=== PATIENT | female | born 1935 | race Caucasian/White ===

== ENCOUNTER 2022-11-10 18:14 | Outpatient (REF) | payer MEDICARE, SELFPAY ==
[2022-11-10 18:47] LABS: Appearance Urine Cloudy (Clear); Bilirubin Urine Negative (Negative); Blood Urine 1+ (Negative); Color Urine Yellow (Yellow); Glucose Urine Negative (Negative); Ketones Urine Negative (Negative); Leukocyte Esterase Urine 3+ (Negative); Nitrite Urine Positive (Negative); Protein Urine Negative (Negative); Urobilinogen Urine 0.2 (0.2-1.0); pH Urine 5.5 (5.0-8.5)
[2022-11-10 19:15] LABS: Bacteria Urine Many; RBC Urine 25-50 (0-2); Squamous Epithelial Cell Urine Many (None-Few); WBC Urine >100 (0-5)
== END 2022-11-10 18:15 | disposition home or self-care (01) ==
LOC: NPINS 18:14
PROVIDERS: Visit Provider Nurse Practitioner Gerontology
DX: R35.0 Frequency of micturition (principal); R41.0 Disorientation, unspecified
CPT/HCPCS: 81001; 87086; 87186

== ENCOUNTER 2022-11-14 13:04 | Emergency (ER) | payer MEDICARE, SELFPAY ==
[2022-11-14 13:17] VITALS: BP 157/83; PULSE 89; RESP 18; TEMP 37.2; O2SAT 96; BMI 29.3
--- NOTE | 2022-11-14 13:38 | CRLHL7_ITS ---
For Patients: As a result of the Century Cures Act, medical imaging exams and procedure reports are released immediately into your electronic medical record. You may view this report before your referring provider. If you have questions, please contact your health care provider. INDICATION: Headache. TECHNIQUE: Head CT without contrast. COMPARISON: None. FINDINGS: CSF spaces: Within normal limits for age. Brain parenchyma and extra-axial spaces: There are nonspecific low attenuation white matter changes consistent with chronic microvascular disease. No sign of mass, hemorrhage, or midline shift. Skull base and calvarium: The visualized paranasal sinuses and mastoid air cells demonstrate no acute or significant findings. The visualized orbits are grossly unremarkable. No skull fractures. IMPRESSION: No acute or significant findings. Please note that all CT scans at this facility use dose modulation, iterative reconstruction, and/or weight-based dosing when appropriate to reduce radiation dose to as low as reasonably achievable. Dictated by Jann Huang MD @ 11/14/2022 2:26:42 PM (Electronically Signed)
--- NOTE | 2022-11-14 13:42 | ED_ITS ---
HPI - General Adult General Time Seen by Provider: 13:42 Date Seen: 11/14/22 Chief complaint: Headache/Migraine Stated complaint: Headache Body Aches Stroke Concerns Time Seen by Provider: 11/14/22 13:18 Source: patient Mode of arrival: ambulatory Limitations: no limitations History of Present Illness HPI narrative: Patient is a very pleasant 87 year white female who lives at a assisted living in [facility]. She apparently had a mild headache this morning left side of her head. She felt just somewhat dizzy for a while but wanted to stay in bed get some Tylenol. Staff felt that she should be evaluated for stroke. I discussed with her and her son who is very involved in her care whether they want aggressive intervention or not and after discussion it was determined she did not really want a breathing machine or ventilation or to be ?kept alive?. The patient denies any focal weakness denies any recent fever chills cough systemic signs of illness she feels better now than she did earlier this morning M she is requesting some Tylenol that helped her in the past. She reports she has had similar headaches in the past that have just simply ?gone away?. Patient denies any neck stiffness any visual problem photophobia or neurologic complaint as mention. No dysuria frequency. No cough, no chest pain Related Data Home Medications Medication Instructions Recorded Confirmed acetaminophen 500 mg tablet mg 11/14/22 (Acetaminophen Extra Strength) lisinopril 5 mg tablet mg 11/14/22 melatonin 3 mg capsule 3 mg PO HS PRN 11/14/22 11/14/22 nitrofurantoin 11/14/22 monohydrate/macrocrystals 100 mg capsule (Macrobid) Allergies Allergy/AdvReac Type Severity Reaction Status Date / Time No Known Drug Allergies Allergy Verified 11/14/22 13:26 Review of Systems Status of ROS: Reports: 6 or more systems reviewed and unremarkable except as noted in History and below [facility] Social History Smoking Status: Smoker, status unknown Exam Narrative: Exam Narrative: Objective: Vital signs unremarkable other than slightly elevated blood pressure HEENT shows no facial asymmetry pupils react extraocular moves intact, neck supple, chest is clear, heart rhythm regular with 2/6 systolic ejection murmur Abdomen benign soft Extremities good perfusion, good strength in the upper lower extremities, normal sensation in upper lower extremities. Patient is able to ambulate independently and also with her walker Const: Vital Signs, click to edit/add: Vital Signs - 24 hr 11/14/22 13:17 Temperature 99.0 F Pulse Rate [Right Pulse Oximeter] 89 Respiratory Rate 18 Blood Pressure [Ri ght Upper Arm] 157/83 H Pulse Oximetry 96 Oxygen Delivery Me thod Room Air Course Vital Signs Vital signs: Initial Vital Signs Temperature 99.0 F 11/14/22 13:17 Temperature Source Temporal Artery Scan 11/14/22 13:17 Pulse Rate 89 11/14/22 13:17 Respiratory Rate 18 11/14/22 13:17 Blood Pressure 157/83 H 11/14/22 13:17 Blood Pressure Mean 107 11/14/22 13:17 Blood Pressure Position Sitting 11/14/22 13:17 Pulse Oximetry 96 11/14/22 13:17 Oxygen Delivery Method 11/14/22 13:17 Vital Signs Temperature 99.0 F 11/14/22 13:17 Pulse Rate 89 11/14/22 13:17 Respiratory Rate 18 11/14/22 13:17 Blood Pressure 157/83 H 11/14/22 13:17 Pulse Oximetry 96 11/14/22 13:17 Oxygen Delivery Method 11/14/22 13:17 Temperature 99.0 F 11/14/22 13:17 Pulse Rate 89 11/14/22 13:17 Respiratory Rate 18 11/14/22 13:17 Blood Pressure 157/83 H 11/14/22 13:17 Pulse Oximetry 96 11/14/22 13:17 Oxygen Delivery Method 11/14/22 13:17 Medical Decision Making MDM Narrative Medical decision making narrative: Discuss with Luz Marina in her son that they really are and charge of her health care and they can elect to proceed with testing if they wish to. After discussion of treatment off her options including just simply using some Tylenol returning to the residential, versus doing a full workup or transfer and imaging such as MRI scanning, with mutual decision making we decided to do a head CT scan, laboratory studies and try some Tylenol. I suggest to them that they consider that her treatment status in terms of a code status and they will discuss this with her primary provider. At this point she is very clear she does not want life-sustaining intervention. This approach of a CT and labs CE and Tylenol seems like a very reasonable approach given her presentation. Her symptoms have improved Addendum: The patient got Tylenol and her headache is resolved, her head CT looks negative, her laboratory studies are pending but due to the ER acuity and volume the patient will be waiting for many hours before she gets her labs back. Will out heard her son to go home per their request and will call him back there is any significant changes in her lab studies. Light activity Tylenol as needed return as needed. They were comfortable this plan. Lab Data Labs: Lab Results 11/14/22 11/14/22 11/14/22 Range/Units 13:39 14:25 14:25 WBC 11.82 H (4.50-11.00) K/uL RBC 4.59 (4.00-5.20) m/uL Hgb 14.5 (12.0-16.0) gm/dL Hct 42.8 (33.0-51.0) % MCV 93 (80-100) fL MCH 32 (26-34) pg MCHC 34 (32-36) gm/dL RDW Coeff of Lalo 12.4 (11.5-15.5) % Plt Count 195 (140-440) K/uL Neut % (Auto) 88.5 H (42.0-72.0) % Lymph % (Auto) 3.7 L (20-44) % [place] % (Auto) 6.3 (0.0-11.0) % Eos % (Auto) 0.4 (0.0-7.0) % Baso % (Auto) 0.2 (0.0-3.0) % Neut # (Auto) 10.50 H (1.7-7.0) K/uL Lymph # (Auto) 0.40 L (0.90-2.90) K/uL [place] # (Auto) 0.70 (0.00-0.90) K/UL Eos # (Auto) 0.00 (0.00-0.50) K/uL Baso # (Auto) 0.00 (0.00-0.30) K/uL Sodium 134 L (135-149) mmol/L Potassium 4.3 (3.6-5.1) mmol/L Chloride 102 (96-114) mmol/L Carbon Dioxide 24 (20-32) mmol/L BUN 13 (7-30) mg/dL Creatinine 0.6 (0.5-1.5) mg/dL Estimated Creat Clear 29.54 Estimated GFR 88 ml/min Glucose 100 (60-115) mg/dL Calcium 9.2 (8.4-10.6) mg/dL SARS-CoV-2 (PCR) Negative SARS-CoV-2 (Negative) Influenza Type A (PCR) Negative PCR FLU A (Negative) Influenza Type B (PCR) Negative PCR FLU B (Negative) RSV (PCR) Negative PCR RSV (Negative) Discharge Plan Discharge Clinical Impression: Headache Patient Disposition: Home w/ Parent or Adult Condition: Stable Additional Instructions: Light activity, Tylenol as needed, fluids, update regular doctor in the next couple of days if problems or concerns, return to ED sooner as needed. Activity Level: Light activity Discharge Diet: Regular Prescriptions: No Action acetaminophen [Acetaminophen Extra Strength] 500 mg tablet Label Comments: Take 2 tablet by mouth twice a day as needed for pain lisinopril 5 mg tablet Label Comments: TAKE ONE TABLET BY MOUTH EVERY MORNING nitrofurantoin monohyd/m-cryst [Macrobid] 100 mg capsule Label Comments: Take 1 capsule by mouth twice a day X7 days for UTI melatonin 3 mg capsule 3 mg PO HS PRN Follow Up/Referrals: Provider,Not a Local [Primary Care Provider] - Stand Alone Forms: [facility] Info Instructions
[2022-11-14] MEDS: ACETAMINOPHEN 500 MG TABLET 1000 MG PO (14:05)
[2022-11-14 14:50] LABS: Basophils Percent Auto 0.2 % (0.0-3.0); Eosinophils Percent Auto 0.4 % (0.0-7.0); Hematocrit 42.8 % (33.0-51.0); Hemoglobin* 14.5 gm/dL (12.0-16.0); Immature Granulocytes Pct Auto 0.9 %; Lymphocytes Percent Auto 3.7 % (20-44); Mean Corpuscular HGB Conc 34 gm/dL (32-36); Mean Corpuscular Hemoglobin 32 pg (26-34); Mean Corpuscular Volume 93 fL (80-100); Monocytes Percent Auto 6.3 % (0.0-11.0); Neutrophils Percent Auto 88.5 % (42.0-72.0); Platelet Count* 195 K/uL (140-440); RDW Coefficient of Variation % 12.4 % (11.5-15.5); Red Blood Count 4.59 m/uL (4.00-5.20); White Blood Count* 11.82 K/uL (4.50-11.00)
[2022-11-14 15:00] VITALS: BP 157/83; PULSE 89; RESP 18; TEMP 37.2
[2022-11-14 15:01] LABS: PCR FLU A Negative PCR FLU A (Negative); PCR FLU B Negative PCR FLU B (Negative); PCR RSV Negative PCR RSV (Negative)
[2022-11-14 15:02] LABS: SARS PCR* Negative SARS-CoV-2 (Negative)
[2022-11-14 15:03] LABS: Slide Review Reflex No
[2022-11-14 15:09] LABS: Chloride* 102 mmol/L (96-114)
[2022-11-14 15:10] LABS: Potassium* 4.3 mmol/L (3.6-5.1); Sodium* 134 mmol/L (135-149)
[2022-11-14 15:12] LABS: Creatinine* 0.6 mg/dL (0.5-1.5); Est. Creatinine Clearance* 29.54; Estimated Glomerular Filt Rate 88 ml/min
[2022-11-14 15:13] LABS: Blood Urea Nitrogen* 13 mg/dL (7-30); Calcium* 9.2 mg/dL (8.4-10.6); Carbon Dioxide* 24 mmol/L (20-32); Glucose* 100 mg/dL (60-115)
--- NOTE | 2022-11-14 15:48 | ED.NURSE ---
Update given to Annie nurse at [facility]. Will fax lab results/imaging report and D/C instructions to [facility] at [phone], per Annie's request. Annie aware Pt and son left without discharge paperwork.
== END 2022-11-14 15:00 | disposition home or self-care (01) ==
PROVIDERS: Emergency Provider Family Medicine
DX: R51.9 Headache, unspecified (principal)
CPT/HCPCS: 36415; 70450; 80048; 85025; 87502; 87634; 87635; 99284; A9270

== ENCOUNTER 2023-08-21 14:35 | Outpatient (REF) | payer BC, SELFPAY ==
[2023-08-21 15:10] LABS: Basophils Absolute Auto 0.02 K/uL (0.00-0.30); Basophils Percent Auto 0.4 % (0.0-3.0); Eosinophils Absolute Auto 0.16 K/uL (0.00-0.50); Eosinophils Percent Auto 3.2 % (0.0-7.0); Hematocrit 45.1 % (33.0-51.0); Hemoglobin* 14.6 gm/dL (12.0-16.0); Immature Granulocytes Abs Auto 0.01 K/uL (0.00-0.30); Immature Granulocytes Pct Auto 0.2 %; Lymphocytes Absolute Auto 1.25 K/uL (0.90-2.90); Lymphocytes Percent Auto 25.1 % (20-44); Mean Corpuscular HGB Conc 32 gm/dL (32-36); Mean Corpuscular Hemoglobin 30 pg (26-34); Mean Corpuscular Volume 94 fL (80-100); Neutrophils Absolute Auto 2.99 K/uL (1.7-7.0); Neutrophils Percent Auto 60.1 % (42.0-72.0); Platelet Count* 173 K/uL (140-440); Red Blood Count 4.82 m/uL (4.00-5.20); White Blood Count* 4.98 K/uL (4.50-11.00)
[2023-08-21 15:16] LABS: Slide Review Reflex No
[2023-08-21 15:27] LABS: Chloride* 105 mmol/L (96-114); Sodium* 137 mmol/L (135-149)
[2023-08-21 15:28] LABS: Potassium* 4.4 mmol/L (3.6-5.1)
[2023-08-21 15:30] LABS: Creatinine* 0.7 mg/dL (0.5-1.5); Estimated Glomerular Filt Rate 84 ml/min
[2023-08-21 15:31] LABS: Anion Gap 11 mEq/L (7-15); Blood Urea Nitrogen* 12 mg/dL (7-30); Calcium* 9.3 mg/dL (8.4-10.6); Carbon Dioxide* 21 mmol/L (20-32); Glucose* 114 mg/dL (60-115)
[2023-08-21 15:42] LABS: NT Pro B Type NatriureticPept* 141 pg/mL
== END 2023-08-21 14:36 | disposition home or self-care (01) ==
LOC: NPINS 14:35
PROVIDERS: Visit Provider Family Medicine
DX: R06.02 Shortness of breath (principal)
CPT/HCPCS: 80048; 83880; 84443; 85025

== ENCOUNTER 2023-12-07 10:32 | Outpatient (REF) | payer BC, SELFPAY ==
[2023-12-07 11:32] LABS: Chloride* 104 mmol/L (96-114)
[2023-12-07 11:33] LABS: Potassium* 4.3 mmol/L (3.6-5.1); Sodium* 137 mmol/L (135-149)
[2023-12-07 11:35] LABS: Creatinine* 0.8 mg/dL (0.5-1.5); Estimated Glomerular Filt Rate 72 ml/min
[2023-12-07 11:36] LABS: Anion Gap 12 mEq/L (7-15); Blood Urea Nitrogen* 12 mg/dL (7-30); Calcium* 9.4 mg/dL (8.4-10.6); Carbon Dioxide* 21 mmol/L (20-32); Glucose* 110 mg/dL (60-115)
== END 2023-12-07 10:33 | disposition home or self-care (01) ==
LOC: NPINS 10:32
PROVIDERS: Visit Provider Nurse Practitioner Gerontology
DX: Z79.899 Other long term (current) drug therapy (principal)
CPT/HCPCS: 80048

== ENCOUNTER 2024-12-17 11:31 | Outpatient (CLI) | payer BC, SELFPAY | END 2024-12-17 11:32 | disposition home or self-care (01) | LOC: AMB 12-20 18:41 | PROVIDERS: PCP Family Medicine; Visit Provider Emergency Medicine Emergency Medical Services | DX: R41.82 Altered mental status, unspecified (principal) | CPT/HCPCS: A0425; A0429 ==

== ENCOUNTER 2024-12-17 11:38 | Observation (INO) | payer BC, SELFPAY ==
--- NOTE | 2024-12-17 11:44 | CRLHL7_ITS ---
For Patients: As a result of the Century Cures Act, medical imaging exams and procedure reports are released immediately into your electronic medical record. You may view this report before your referring provider. If you have questions, please contact your health care provider. INDICATION: Weakness TECHNIQUE: CT Head without i.v. contrast. Coronal and sagittal reformats were obtained. COMPARISON: 11/14/2022 FINDINGS: CSF space: Unremarkable for age. Brain: No evidence of mass, acute infarction or hemorrhage is seen. No mass-effect or midline shift is seen. Mild diffuse cortical atrophy is noted. The brain parenchyma is otherwise normal in appearance with preservation of the spence-white matter junction. Moderate patchy regions of low attenuation are present in the periventricular white matter, likely due to chronic microvascular ischemic changes. Calvarium: The visualized paranasal sinuses are well aerated. The mastoid air cells are clear. The visualized orbits are grossly unremarkable. The patient is status post prior bilateral cataract removal. The calvarium is unremarkable in appearance with no fractures identified. IMPRESSION: 1. No evidence of acute infarction, intracranial hemorrhage, or mass-effect seen. Please note that all CT scans at this facility use dose modulation, iterative reconstruction, and/or weight-based dosing when appropriate to reduce radiation dose to as low as reasonably achievable. Dictated by: Melvin Arnett MD @ 12/17/2024 13:01:29 (Electronically Signed)
--- NOTE | 2024-12-17 11:45 | ED_ITS ---
HPI - General Adult General Chief complaint: Weakness Stated complaint: Weakness Time Seen by Provider: 12/17/24 11:42 History of Present Illness HPI narrative: Patient is a 9-year-old woman who lives in local halfway. She comes in today as staff is found her to be more combative and less cooperative. Patient has had no focal neurologic defects but is not able to function at her previous level. She has become very paranoid and is not willing to work with the staff. She has had no recent injuries. She has had no fevers no chills no nausea no vomiting. She refused to take her medications this morning but otherwise been compliant and is been eating and drinking normally. Patient has a baseline of underlying Alzheimer's dementia. Related Data Home Medications ?Medication ?Instructions ?Recorded ?Confirmed acetaminophen 500 mg tablet mg 11/14/22 (Acetaminophen Extra Strength) lisinopril 5 mg tablet mg 11/14/22 melatonin 3 mg capsule 3 mg PO HS PRN 11/14/22 11/14/22 nitrofurantoin 11/14/22 monohydrate/macrocrystals 100 mg capsule (Macrobid) Allergies Allergy/AdvReac Type Severity Reaction Status Date / Time No Known Drug Allergies Allergy Verified 11/14/22 13:26 Review of Systems Status of ROS: Reports: 10 or more systems reviewed and unremarkable except as noted in History and below [facility] Social History Smoking Status: Smoker, status unknown Do you use any of these nicotine containing products: None Second hand tobacco smoke exposure: No How often do you have a drink containing alcohol: never AUDIT-C Alcohol total score: 0 Non-prescribed substance use: denies use service: No Exam Narrative: Exam Narrative: EXAM GENERAL: Patient appears agitated and confused. EYES: No scleral icterus. LYMPH: No supraclavicular or cervical lymphadenopathy. SKIN: Visible skin seen during exam normal or with benign process only. EXT: No dependent lower extremity pedal edema. HEART: Regular rate and rhythm with no murmurs, rubs, or gallops. LUNGS: Clear to auscultation bilaterally with no crackles or wheezes. ABD: Soft, non tender, non distended. PSYCH: Good eye contact, speech is not pressured. Const: Vital Signs, click to edit/add: Vital Signs - 24 hr 12/17/24 11:49 12/17/24 12:47 Temperature 99.6 F 99 F Pulse Rate [Pulse Oximeter] 64 72 Respiratory Rate 18 18 Blood Pressure [Le ft Forearm] 154/86 H Blood Pressure [Ri ght Upper Arm] 187/102 H Pulse Oximetry 98 93 Oxygen Delivery Me thod Room Air Room Air Course Course ED Course: Patient seen and examined. UA CBC comprehensive metabolic panel EKG CT pending. Vital Signs Vital signs: Initial Vital Signs Temperature 99.6 F 12/17/24 11:49 Temperature Source Temporal Artery Scan 12/17/24 11:49 Pulse Rate 64 12/17/24 11:49 Respiratory Rate 18 12/17/24 11:49 Blood Pressure 187/102 H 12/17/24 11:49 Blood Pressure Mean 130 H 12/17/24 11:49 Pulse Oximetry 98 12/17/24 11:49 Oxygen Delivery Method Room Air 12/17/24 11:49 Vital Signs Temperature 99.6 F 12/17/24 11:49 Pulse Rate 64 12/17/24 11:49 Respiratory Rate 18 12/17/24 11:49 Blood Pressure 187/102 H 12/17/24 11:49 Pulse Oximetry 98 12/17/24 11:49 Oxygen Delivery Method Room Air 12/17/24 11:49 Temperature 99 F 12/17/24 12:47 Pulse Rate 72 12/17/24 12:47 Respiratory Rate 18 12/17/24 12:47 Blood Pressure 154/86 H 12/17/24 12:47 Pulse Oximetry 93 12/17/24 12:47 Oxygen Delivery Method Room Air 12/17/24 12:47 Medical Decision Making [facility] Narrative Medical decision making narrative: Patient is a 89-year-old woman who presents from a local care facility with acute mental status changes. She has evidence of UTI. She is given 1 g Rocephin her urine is sent for culture. CT of the head upon my review is unremarkable. Patient will be admitted for continued treatment PT OT and social Work consultation. Lab Data Labs: Lab Results 12/17/24 12/17/24 Range/Units 12:00 12:10 WBC 5.18 (4.50-11.00) K/uL RBC 5.11 (4.00-5.20) m/uL Hgb 15.6 (12.0-16.0) gm/dL Hct 47.1 (33.0-51.0) % MCV 92 (80-100) fL MCH 31 (26-34) pg MCHC 33 (32-36) gm/dL RDW Coeff of Lalo 12.8 (11.5-15.5) % Plt Count 117 L (140-440) K/uL Neut % (Auto) 58.5 (42.0-72.0) % Lymph % (Auto) 27.4 (20-44) % [place] % (Auto) 11.8 H (0.0-11.0) % Eos % (Auto) 2.1 (0.0-7.0) % Baso % (Auto) 0.2 (0.0-3.0) % Neut # (Auto) 3.03 (1.7-7.0) K/uL Lymph # (Auto) 1.42 (0.90-2.90) K/uL [place] # (Auto) 0.60 (0.00-0.90) K/UL Eos # (Auto) 0.11 (0.00-0.50) K/uL Baso # (Auto) 0.01 (0.00-0.30) K/uL Abs Immat Gran (auto) 0.00 (0.00-0.30) K/uL Imm/Tot Granulo (auto) 0.0 % Sodium 135 (135-149) mmol/L Potassium 4.5 (3.6-5.1) mmol/L Chloride 107 (96-114) mmol/L Carbon Dioxide 21 (20-32) mmol/L Anion Gap 7 (7-15) mEq/L BUN 14 (7-30) mg/dL Creatinine 0.7 (0.5-1.5) mg/dL Estimated Creat Clear 34.23 Estimated GFR 84 ml/min Glucose 105 (60-115) mg/dL Calcium 9.3 (8.4-10.6) mg/dL Total Bilirubin 1.2 (0.1-1.5) mg/dL AST 26 (12-35) U/L ALT 15 (4-35) U/L Alkaline Phosphatase 94 (40-150) U/L Total Protein 7.3 (6.0-8.3) g/dL Albumin 4.2 (3.3-5.0) g/dL Urine Color Yellow (Yellow) Urine Appearance Cloudy A (Clear) Urine pH >= 9.0 H (5.0-8.5) Ur Specific [place] 1.010 (1.000-1.030) Urine Protein 1+ A (Negative) Urine Glucose (UA) Negative (Negative) Urine Ketones Negative (Negative) Urine Blood Trace-intact A (Negative) Urine Nitrite Positive A (Negative) Urine Bilirubin Negative (Negative) Urine Urobilinogen 0.2 (0.2-1.0) Ur Leukocyte Esterase 2+ A (Negative) Urine RBC 0-2 (0-2) Urine WBC 10-25 A (0-5) Ur Squamous Epith Cells Moderate A (None-Few) Amorphous Sediment Moderate A (None) Urine Bacteria Many A (None) Discharge Plan Discharge Clinical Impression: Acute delirium Patient Disposition: Admitted As Inpatient Condition: Stable Activity Level: No Restrictions Discharge Diet: Regular Prescriptions: No Action acetaminophen [Acetaminophen Extra Strength] 500 mg tablet Patient Comments: Take 2 tablet by mouth twice a day as needed for pain lisinopril 5 mg tablet Patient Comments: TAKE ONE TABLET BY MOUTH EVERY MORNING nitrofurantoin monohyd/m-cryst [Macrobid] 100 mg capsule Patient Comments: Take 1 capsule by mouth twice a day X7 days for UTI melatonin 3 mg capsule 3 mg PO HS PRN Follow Up/Referrals: Provider,Not a Local [Primary Care Provider] -
[2024-12-17 11:49] VITALS: BP 187/102; PULSE 64; RESP 18; TEMP 37.6; O2SAT 98; BMI 30.9
[2024-12-17 12:08] LABS: Basophils Absolute Auto 0.01 K/uL (0.00-0.30); Basophils Percent Auto 0.2 % (0.0-3.0); Eosinophils Absolute Auto 0.11 K/uL (0.00-0.50); Eosinophils Percent Auto 2.1 % (0.0-7.0); Hematocrit 47.1 % (33.0-51.0); Hemoglobin* 15.6 gm/dL (12.0-16.0); Lymphocytes Absolute Auto 1.42 K/uL (0.90-2.90); Lymphocytes Percent Auto 27.4 % (20-44); Mean Corpuscular HGB Conc 33 gm/dL (32-36); Mean Corpuscular Hemoglobin 31 pg (26-34); Mean Corpuscular Volume 92 fL (80-100); Monocytes Percent Auto 11.8 % (0.0-11.0); Neutrophils Absolute Auto 3.03 K/uL (1.7-7.0); Neutrophils Percent Auto 58.5 % (42.0-72.0); Platelet Count* 117 K/uL (140-440); RDW Coefficient of Variation % 12.8 % (11.5-15.5); Red Blood Count 5.11 m/uL (4.00-5.20); White Blood Count* 5.18 K/uL (4.50-11.00)
[2024-12-17 12:09] LABS: Slide Review Reflex No
--- NOTE | 2024-12-17 12:11 | CRLHL7_ITS ---
For Patients: As a result of the Cures Act, medical imaging exams and procedure reports are released immediately into your electronic medical record. You may view this report before your referring provider. If you have questions, please contact your health care provider. INDICATION: Weakness TECHNIQUE: Chest radiograph 1 view COMPARISON: None FINDINGS: The sensitivity and specificity of the exam are severely limited by the patient`s body habitus. Mediastinum: Mild mediastinal widening is present and likely due to lipomatosis. The cardiac silhouette is mildly enlarged but may be accentuated by the portable technique. Lung: Both lungs are unremarkable in appearance. No sign of pleural effusion seen. No pneumothorax is identified. Bone and Soft tissue: Unremarkable for age. IMPRESSION: 1. The cardiac silhouette is mildly enlarged but may be accentuated by the portable technique. Dictated by Melvin Arnett MD @ 12/17/2024 12:49:38 PM Dictated by: Melvin Arnett MD @ 12/17/2024 12:49:43 (Electronically Signed)
[2024-12-17 12:15] LABS: Albumin* 4.2 g/dL (3.3-5.0); Chloride* 107 mmol/L (96-114); Sodium* 135 mmol/L (135-149)
[2024-12-17 12:16] LABS: Potassium* 4.5 mmol/L (3.6-5.1)
[2024-12-17 12:18] LABS: Alanine Aminotransferase* 15 U/L (4-35); Alkaline Phosphatase* 94 U/L (40-150); Anion Gap 7 mEq/L (7-15); Aspartate Amino Transferase* 26 U/L (12-35); Bilirubin Total* 1.2 mg/dL (0.1-1.5); Blood Urea Nitrogen* 14 mg/dL (7-30); Carbon Dioxide* 21 mmol/L (20-32); Creatinine* 0.7 mg/dL (0.5-1.5); Est. Creatinine Clearance* 34.23; Estimated Glomerular Filt Rate 84 ml/min; Glucose* 105 mg/dL (60-115); Total Protein* 7.3 g/dL (6.0-8.3)
[2024-12-17 12:19] LABS: Calcium* 9.3 mg/dL (8.4-10.6)
[2024-12-17 12:23] LABS: Appearance Urine Cloudy (Clear); Bilirubin Urine Negative (Negative); Blood Urine Trace-intact (Negative); Color Urine Yellow (Yellow); Glucose Urine Negative (Negative); Ketones Urine Negative (Negative); Leukocyte Esterase Urine 2+ (Negative); Nitrite Urine Positive (Negative); Protein Urine 1+ (Negative); Urobilinogen Urine 0.2 (0.2-1.0)
[2024-12-17 12:32] LABS: pH Urine >= 9.0 (5.0-8.5)
[2024-12-17 12:33] LABS: Amorphous Sediment Urine Moderate; Bacteria Urine Many; RBC Urine 0-2 (0-2); Squamous Epithelial Cell Urine Moderate (None-Few)
[2024-12-17 12:47] VITALS: BP 154/86; PULSE 72; RESP 18; TEMP 37.2; O2SAT 93
[2024-12-17] MEDS: cefTRIAXone 1 GM in 0.9 % SODIUM CHLORIDE Mini-bag 100 ML IVPB (13:24)
[2024-12-17 13:42] LABS: PCR FLU A Negative PCR FLU A (Negative); PCR FLU B Negative PCR FLU B (Negative); PCR RSV Negative PCR RSV (Negative); SARS PCR* Negative SARS-CoV-2 (Negative)
[2024-12-17 13:44] VITALS: BP 181/104; PULSE 70; RESP 22; TEMP 37.6; O2SAT 94; BMI 33.7
[2024-12-17 15:00] VITALS: BP 140/95; PULSE 74; RESP 18; TEMP 37.4; O2SAT 97
--- NOTE | 2024-12-17 15:18 | P.IMHP_ITS ---
Hospitalist- H&P: HPI History of Present Illness Date Seen: 12/17/24 Chief complaint: Weakness Narrative: Luz Marina Harrison is a 89 year old female resident of a local care facility with dementia who was sent to the emergency room today because staff found her to be more combative and agitated. This has apparently been a problem recently. Patient has been non cooperative with cares at that facility. Due to dementia the patient is unable to give much history. She apparently lives on the [facility] but she does not know where she is at this time. She understands the staff sent her to the hospital but she does not know why and she reports she is not feeling ill in any way. She specifically denies having any pain, cold, cough, congestion, shortness of breath, sore throat, nausea or vomiting, abdominal pain, diarrhea, pain with urination, fever. No previous sore outside medical records are available at this time. Review of Systems Narrative: Limited due to dementia. Patient denies any problems. [facility] Medical History (Updated 12/17/24 @ 15:34 by Hesham Carl MD) Hypertension ?I10 - Essential (primary) hypertension (ICD-10) Dementia ?F03.90 - Unspecified dementia, unspecified severity, without behavioral disturbance, psychotic disturbance, mood disturbance, and anxiety (ICD-10) Social History (Updated 12/17/24 @ 15:29 by Hesham Carl MD) Narrative: Patient likely lives at the [facility]. She is a former smoker. She does not drink alcohol. Unable to get any further history today. What is your current living situation?: I presently have a place to live Problems where you live: unable to answer Problems where you live details: NA In the past 12 months, utilities in danger of being shut off: no In past 12 months, lack of transportation kept you from medical appts, meetings, work, or getting things needed for daily living: unable to answer In the past 12 mos, have been you worried that your food would run out before you had money to buy more?: unable to answer In the past 12 mos, the food you bought just didn't last and you didn't have money to buy more?: unable to answer Highest level of school completed/degree received: high school graduate Smoking Status: Former smoker Do you use any of these nicotine containing products: None Second hand tobacco smoke exposure: No How often do you have a drink containing alcohol: never AUDIT-C Alcohol total score: 0 Non-prescribed substance use: denies use How often does anyone, including family, friends and others, physically hurt you : never How often does anyone, including family, friends and others, insult or talk down to you: never How often does anyone, including family, friends and others, threaten you with harm: never How often does anyone, including family, friends and others, scream or curse at you: never service: No Meds Home Medications and Allergies Home Medications ?Medication ?Instructions ?Recorded ?Confirmed ?Type acetaminophen 500 mg tablet 1,000 mg PO BID PRN 11/14/22 12/17/24 History (Acetaminophen Extra Strength) lisinopril 5 mg tablet 5 mg PO DAILY 11/14/22 12/17/24 History melatonin 3 mg capsule 3 mg PO HS PRN 11/14/22 12/17/24 History carboxymethylcellulose sodium 1 % 1 drp ophthalmic (eye) Q8H PRN 12/17/24 12/17/24 History eye gel in a dropperette (Refresh Celluvisc) nystatin 100,000 unit/gram topical 1 applic topical DAILY 12/17/24 12/17/24 History cream omeprazole 20 mg capsule,delayed 20 mg PO DAILY 12/17/24 12/17/24 History release sennosides 8.6 mg tablet (senna) 8.6 mg PO DAILY 12/17/24 12/17/24 History vit A 300 mcg-C 200 mg-E 27 1 tab PO DAILY 12/17/24 12/17/24 History mg-lutein 2 mg and minerals tablet (Ocuvite with Lutein) Allergies Allergy/AdvReac Type Severity Reaction Status Date / Time No Known Drug Allergies Allergy Verified 11/14/22 13:26 Exam Narrative: Exam Narrative: She is alert and appears mildly anxious or agitated. She is not oriented to place or circumstances. She does give me her name. She is cooperative with history and physical exam. Head is without apparent trauma. Eyes are normal. Pupils are equal round reactive to light. Oropharynx is notable for dry mucous membranes and she is edentulous. Neck is supple without mass or adenopathy. Respirations are clear to auscultation. Breathing is unlabored. Cardiovascular: S1, S2, regular rate and rhythm. Abdomen: Bowel sounds active. Abdomen is soft without tenderness or mass. External genitalia normal. She moves all 4 extremities well without focal weakness. She has no significant edema. Good capillary perfusion in all 4 extremities. No rash Const: Vital Signs, click to edit/add: Vital Signs - 24 hr 12/17/24 11:49 12/17/24 12:47 12/17/24 13:44 Temperature 99.6 F 99 F 99.7 F H Pulse Rate [Left P ulse Oximeter] 70 Pulse Rate [Pulse Oximeter] 64 72 Respiratory Rate 18 18 22 Blood Pressure [Le ft Arm] 181/104 H Blood Pressure [Le ft Forearm] 154/86 H Blood Pressure [Ri ght Upper Arm] 187/102 H Pulse Oximetry 98 93 94 Oxygen Delivery Me thod Room Air Room Air Room Air Documenting provider has reviewed patient's vital signs: yes Hospitalist - H&P: Result Labs Labs: Short CBC 12/17/24 Range/Units 12:00 WBC 5.18 (4.50-11.00) K/uL Hgb 15.6 (12.0-16.0) gm/dL Hct 47.1 (33.0-51.0) % Plt Count 117 L (140-440) K/uL BMP 12/17/24 12:00 Sodium 135 Potassium 4.5 Chloride 107 Carbon Dioxide 21 BUN 14 Creatinine 0.7 Glucose 105 Calcium 9.3 Liver Function 12/17/24 Range/Units 12:00 Total Bilirubin 1.2 (0.1-1.5) mg/dL AST 26 (12-35) U/L ALT 15 (4-35) U/L Alkaline Phosphatase 94 (40-150) U/L Albumin 4.2 (3.3-5.0) g/dL Urine 12/17/24 Range/Units 12:10 Urine Color Yellow (Yellow) Urine Appearance Cloudy A (Clear) Urine pH >= 9.0 H (5.0-8.5) Ur Specific [place] 1.010 (1.000-1.030) Urine Protein 1+ A (Negative) Urine Glucose (UA) Negative (Negative) Imaging CT scan - head: Radiologist's impression: NDICATION: Weakness TECHNIQUE: CT Head without i.v. contrast. Coronal and sagittal reformats were obtained. COMPARISON: 11/14/2022 FINDINGS: CSF space: Unremarkable for age. Brain: No evidence of mass, acute infarction or hemorrhage is seen. No mass-effect or midline shift is seen. Mild diffuse cortical atrophy is noted. The brain parenchyma is otherwise normal in appearance with preservation of the spence-white matter junction. Moderate patchy regions of low attenuation are present in the periventricular white matter, likely due to chronic microvascular ischemic changes. Calvarium: The visualized paranasal sinuses are well aerated. The mastoid air cells are clear. The visualized orbits are grossly unremarkable. The patient is status post prior bilateral cataract removal. The calvarium is unremarkable in appearance with no fractures identified. IMPRESSION: 1. No evidence of acute infarction, intracranial hemorrhage, or mass-effect seen. Chest x-ray: Radiologist's impression: NDICATION: Weakness TECHNIQUE: Chest radiograph 1 view COMPARISON: None FINDINGS: The sensitivity and specificity of the exam are severely limited by the patient`s body habitus. Mediastinum: Mild mediastinal widening is present and likely due to lipomatosis. The cardiac silhouette is mildly enlarged but may be accentuated by the portable technique. Lung: Both lungs are unremarkable in appearance. No sign of pleural effusion seen. No pneumothorax is identified. Bone and Soft tissue: Unremarkable for age. IMPRESSION: 1. The cardiac silhouette is mildly enlarged but may be accentuated by the portable technique. Assessment and Plan Assessment and plan (1) Acute delirium: Problem comment: Agitation and confusion in the context of known dementia and urinary tract infection. Continue evaluation management. Obtain information from past medical records. Treat urinary tract infection pending culture. Status: Acute (2) Dementia: Problem comment: Chronic. Severity unknown Status: Acute (3) UTI (urinary tract infection): Problem comment: Marked abnormality of urine. Has a low-grade fever of 99.7. Status: Acute (4) Hypertension: Problem comment: Continue home lisinopril Status: Acute Plan 89-year-old female admitted to the hospital with behavioral changes. Unclear how much of this is dementia related agitation and acute delirium from acute illness. Will continue to treat her known acute illness, UTI as well as evaluate for other acute illness. Gather additional past medical history as well as recent medical history from her care facility. Total Time Spent Total Time Spent: Total time spent today is 65 minutes in coordination of care discussing with other providers ongoing evaluation management of acute mental status change in UTI
--- NOTE | 2024-12-17 18:48 | PC.NURSE ---
Nursing Care Hours: [id number] Pt this shift arrived to floor on stretcher, alert and anxious. Teary eye with confused look. Shuttlecock Feather Trimmer gently talked with patient to orient and describe what is happening. Communication effective at easing pt and pt stated thank you for talking with me. HTN d/t pt tensing from pain from BP cuff. Manual used instead with less pain. No skin issues noted on exam. Foul urine smell noted, brief dry. Gait steady with walker. Pt is not using call light and set alarm off x2. Voided x3 this shift. Shuttlecock Feather Trimmer discussed pt past and current medical history and ADLs with daughter over the phone. Daughter states she wont eat or take pills without dentures in. Pt did not arrive to hospital with dentures or [facility] per ED. Shuttlecock Feather Trimmer called and left a message with pt son.
[2024-12-17 19:00] VITALS: BP 150/80; PULSE 90; RESP 16; TEMP 37.3; O2SAT 95
[2024-12-17] MEDS: SODIUM CHLORIDE 0.9 % (FLUSH) 10 ML SYRINGE 5 ML IVF ×2 (20:12→20:41)
--- NOTE | 2024-12-17 23:24 | PC.NURSE ---
End of shift [id number]: Pt oriented to name, , and month. Pt calm and cooperative. HTN d/t pt tensing from pain from BP cuff. Manual used instead with less pain. Tolerating okay. Gait steady, specification writer continued education on using walker. Pt is not using call light and set alarm off multiple times. Voided multiple times this shift with little UOP each time. Bed alarm in place. Pt resting with call light in reach.
[2024-12-18 03:09] VITALS: PULSE 74; RESP 20; TEMP 37.2; O2SAT 96
[2024-12-18 07:00] VITALS: BP 122/72; PULSE 74; RESP 18; TEMP 36.6; O2SAT 95
--- NOTE | 2024-12-18 07:35 | PC.NURSE ---
End of shift [id number] ? RN took over pt care at approximately 2300. Pt up with standby assistance and walker/gait belt. Oriented to place and self. Disoriented to situation and time. Pt needed to be reminded frequently to use the call light, however she repeatedly set off the bed alarm. RN provided education, comprehension not shown. Continent of bladder during shift. Observed to sleep. Appears to be resting comfortably at end of shift with call light within reach. ?
[2024-12-18] MEDS: SENNOSIDES 1 TAB TABLET PO (08:59)
[2024-12-18] MEDS: lisinopriL 5 MG TABLET PO (08:59)
[2024-12-18] MEDS: OMEPRAZOLE 20 MG CAPSULE DR PO (08:59)
[2024-12-18] MEDS: cefTRIAXone 1 GM in 0.9 % SODIUM CHLORIDE Mini-bag 100 ML IVPB (09:00)
[2024-12-18] MEDS: SODIUM CHLORIDE 0.9 % (FLUSH) 10 ML SYRINGE 5 ML IVF ×2 (09:02→21:45)
--- NOTE | 2024-12-18 10:02 | PC.SOCIAL ---
Addendum entered by JOHN Berrios 12/18/24 13:11: Called pt's son, Carlos, regarding d/c plan. Son states they would like pt to return to [facility] when ready for discharge. He os pleased with the care and services she receives at this facility. Pt is receiving assistance with dressing, bathing and toileting as needed and is accompanied to and from meals. Son states he expects her to eventually need the memory care at this facility but at this time, they would like pt to return to her home at [facility] when discharged form the hospital. care worker to follow up as needed. Original Note: Discharge planning: Called [facility] [phone] and spoke with nurse Denise who states she will call back to MD to answer any questions the doctor has for nursing at her facility. Denise confirmed pt is a resident of [facility]. care worker shared this information with MD. care worker to follow up as needed.
[2024-12-18 11:00] VITALS: BP 100/68; PULSE 82; RESP 16; TEMP 35.9; O2SAT 96
--- NOTE | 2024-12-18 14:22 | PC.NURSE ---
shift note: pt up sba/GB per Phy therapist. pt has steady gait in room. pt sleepy. iv patent. vss stable. pt afeb.
[2024-12-18 15:00] VITALS: BP 115/68; PULSE 82; PULSE 84; RESP 16; RESP 18; TEMP 36.6; O2SAT 96
--- NOTE | 2024-12-18 15:21 | PM.IMPN1 ---
Progress Note: A&P Assessment and plan (1) Altered mental status: Problem details: Primary concern on transfer to the hospital from assisted living was altered mental status, she was not herself. This associated with her weakness where the primary concerns by the staff in her assisted living Status: Acute (2) Weakness: Problem details: New onset prominent weakness with inability to care her for herself, feed herself, walk. These are all new deficits for her. Status: Acute (3) UTI (urinary tract infection): Problem details: Marked abnormality of urine. Has a low-grade fever of 99.7. Culture pending Status: Acute (4) Dementia: Problem details: Chronic. Severity unknown Status: Acute (5) Hypertension: Problem details: Continue home lisinopril and monitor Status: Acute (6) Acute delirium: Problem details: Agitation and confusion in the context of known dementia and urinary tract infection. Continue evaluation management. Obtain information from past medical records. Treat urinary tract infection pending culture. Uncertain how much her altered mental status and agitation related to urinary tract infection. Going to staff at her assisted living this appears to be a new and acute change. Status: Acute Plan Continue in hospital for evaluation and management of altered mental status, UTI, profound weakness. Anticipate discharge back to [facility] when she is improving. Time Spent With Patient Total time spent: Total time spent today is 40 minutes in coordination of care, discussion with staff at her residence as well as hospital staff regarding her deficits and therapy. Subjective Date Seen: 12/18/24 Interval history: Luz Marina Harrison is a 89 year old female resident of a [facility] care [facility] with dementia who was sent to the emergency room today because staff found her to be more combative and agitated. This has apparently been a problem recently. Patient has been non cooperative with cares at that facility. Due to dementia the patient is unable to give much history. She apparently lives on the [facility] but she does not know where she is at this time. She understands the staff sent her to the hospital but she does not know why and she reports she is not feeling ill in any way. She specifically denies having any pain, cold, cough, congestion, shortness of breath, sore throat, nausea or vomiting, abdominal pain, diarrhea, pain with urination, fever. I was able to speak to a nurse at [facility] where she has residence. She has been cared for there with her dementia. Staff there noted that she was not behaving as her normal self. She seemed even more confused and much weaker. She was weak to the point where she could not stand up and walk and she could not feed herself. They also noted that she had quite high blood pressure. For this they brought her to the emergency department for evaluation yesterday. Evaluation emergency department did not show any focal neurologic problems. No obvious injury. The only evidence for infection was her abnormal urinalysis. 12/18/2024: She is not oriented to her circumstances. She has no where she is or why she is here. She does not recall any recent events. She is pleasant. I observe her to be feeding herself. She reports feeling well with no health concerns including no awareness of fever, back or flank pain, abdominal pain or dysuria. Exam Narrative: Exam Narrative: She is alert and not oriented to her circumstances. Head is without trauma. She is able to feed herself her lunch. Respirations are clear to auscultation. Cardiovascular: S1, S2, regular rate and rhythm. Abdomen: Bowel sounds active. Abdomen is soft without tenderness. She moves all 4 extremities well and symmetrically. Const: Vital Signs, click to edit/add: Vital Signs - 24 hr 12/17/24 19:00 12/18/24 03:09 12/18/24 07:00 Temperature 99.2 F 98.9 F 97.8 F Pulse Rate [Left P ulse Oximeter] 90 74 74 Respiratory Rate 16 20 18 Blood Pressure [Le ft Arm] 150/80 H Blood Pressure [Ri ght Arm] 122/72 Pulse Oximetry 95 96 95 Oxygen Delivery Me thod Room Air Room Air Room Air 12/18/24 11:00 Temperature 96.7 F L Pulse Rate [Left P ulse Oximeter] 82 Respiratory Rate 16 Blood Pressure [Le ft Arm] Blood Pressure [Ri ght Arm] 100/68 Pulse Oximetry 96 Oxygen Delivery Me thod Room Air Documenting provider has reviewed patient's vital signs: yes
[2024-12-18 19:00] VITALS: BP 146/76; PULSE 80; RESP 17; TEMP 37.1; O2SAT 93
[2024-12-18 23:00] VITALS: BP 144/96; PULSE 61; PULSE 83; RESP 18; RESP 22; TEMP 36.9; O2SAT 95
--- NOTE | 2024-12-18 23:23 | PC.NURSE ---
Shift note ([id number]): Patient pleasant and cooperative with cares. Oriented to self. Has been in bed all shift. Denies pain.?
[2024-12-19 05:53] VITALS: BP 163/87; PULSE 61; RESP 22; TEMP 37; O2SAT 92
--- NOTE | 2024-12-19 06:53 | PC.NURSE ---
alert, oriented to self and vitally stable. Pt set off bed?alarm multiple times throughout shift. Pt in bed, appears to be resting call light within reach.?
[2024-12-19 07:00] VITALS: PULSE 61; RESP 18; RESP 20
[2024-12-19 08:30] VITALS: BP 138/68; PULSE 84; RESP 20; TEMP 36.8; O2SAT 94
[2024-12-19] MEDS: AMLODIPINE 5 MG TABLET 2.5 MG PO (09:06)
[2024-12-19] MEDS: OMEPRAZOLE 20 MG CAPSULE DR PO (09:06)
[2024-12-19] MEDS: SENNOSIDES 1 TAB TABLET PO (09:06)
[2024-12-19] MEDS: cefTRIAXone 1 GM in 0.9 % SODIUM CHLORIDE Mini-bag 100 ML IVPB (09:08)
[2024-12-19] MEDS: SODIUM CHLORIDE 0.9 % (FLUSH) 10 ML SYRINGE 5 ML IVF (09:08)
[2024-12-19 12:15] VITALS: BP 147/84; PULSE 84; RESP 20; TEMP 37.3; O2SAT 94
--- NOTE | 2024-12-19 13:43 | PC.NURSE ---
shift note: vss stable. pt afeb. Reviewed pt status with nurse Galina from [facility] this a.m at bedside. IV dc'd intact Rt hand. Belongings reviewed and sent with pt at dc. New orders sent with tow truck driver to SNF.
--- NOTE | 2024-12-19 16:50 | P.DS_ITS ---
DS: Providers Provider Date Seen: 12/19/24 Date of admission: 12/17/24 13:36 Primary care physician: Not a Local Provider Admitting Clinician: Hesham Carl MD Attending Physician on discharge: Hesham Carl MD Date of Discharge: 12/19/24 DS: Diagnosis Discharge Diagnosis (1) Altered mental status: Status: Acute Problem details: Primary concern on transfer to the hospital from assisted living was altered mental status, she was not herself. This associated with her weakness where the primary concerns by the staff in her assisted living. Appears back to baseline today. (2) Weakness: Status: Acute Problem details: New onset prominent weakness with inability to care her for herself, feed herself, walk. These are all new deficits for her. Appears back to baseline today. (3) UTI (urinary tract infection): Status: Acute Problem details: Marked abnormality of urine. Has a low-grade fever of 99.7. Culture growing relatively resistant E coli. Susceptible to ceftriaxone which she has received in the hospital and Bactrim. Discharge on single strength Bactrim for 4 more days. Monitor electrolytes and renal function. (4) Dementia: Status: Acute Problem details: Chronic. Severity unknown (5) Hypertension: Status: Acute Problem details: Continue home lisinopril and monitor. Hold lisinopril during Bactrim therapy. Add amlodipine 2.5 mg for recent history of elevated blood pressure (6) Acute delirium: Status: Acute Problem details: Agitation and confusion in the context of known dementia and urinary tract infection. Continue evaluation management. Obtain information from past medical records. Treat urinary tract infection pending culture. Uncertain how much her altered mental status and agitation related to urinary tract infection. Going to staff at her assisted living this appears to be a new and acute change. Now resolved. DS: Summary Hospital Course Hospital Course: Interval history: Luz Marina Harrison is a 89 year old female resident of a local care facility with dementia who was sent to the emergency room today because staff found her to be more combative and agitated. This has apparently been a problem recently. Patient has been non cooperative with cares at that facility. Due to dementia the patient is unable to give much history. She apparently lives on the [facility] but she does not know where she is at this time. She understands the staff sent her to the hospital but she does not know why and she reports she is not feeling ill in any way. She specifically denies having any pain, cold, cough, congestion, shortness of breath, sore throat, nausea or vomiting, abdominal pain, diarrhea, pain with urination, fever. I was able to speak to a nurse at [facility] [place] where she has residence. She has been cared for there with her dementia. Staff there noted that she was not behaving as her normal self. She seemed even more confused and much weaker. She was weak to the point where she could not stand up and walk and she could not feed herself. They also noted that she had quite high blood pressure. For this they brought her to the emergency department for evaluation yesterday. Evaluation emergency department did not show any focal neurologic problems. No obvious injury. The only evidence for infection was her abnormal urinalysis. 12/18/2024: She is not oriented to her circumstances. She has no where she is or why she is here. She does not recall any recent events. She is pleasant. I observe her to be feeding herself. She reports feeling well with no health concerns including no awareness of fever, back or flank pain, abdominal pain or dysuria. 12/19/2024: Therapy evaluates the patient and believe she is back to baseline. She continues to report feeling well. Status at Discharge Functional status at discharge: uses cane/walker Overall status at discharge: patient is progressing back to baseline Time Spent with Patient Time attestation: Total time spent providing and/or coordinating discharge services: 40 minutes Time spent: Greater than 30 minutes Exam Narrative: Exam Narrative: She is alert and appears in no distress. Speech is normal. She is not oriented to her circumstances. Respirations are clear to auscultation. Cardiovascular: S1, S2, regular rate and rhythm. Abdomen is soft without tenderness or mass. Const: Vital Signs, click to edit/add: Vital Signs - 24 hr 12/18/24 19:00 12/18/24 23:00 12/18/24 23:00 Temperature 98.7 F 98.5 F Pulse Rate [Left P ulse Oximeter] 80 83 61 Respiratory Rate 17 18 22 Blood Pressure [Le ft Arm] 146/76 H Blood Pressure [Ri ght Arm] 144/96 H Pulse Oximetry 93 95 Oxygen Delivery Me thod Room Air Room Air 12/19/24 05:53 12/19/24 07:00 12/19/24 07:00 Temperature 98.6 F Pulse Rate [Left P ulse Oximeter] 61 61 Respiratory Rate 22 18 20 Blood Pressure [Le ft Arm] 163/87 H Blood Pressure [Ri ght Arm] Pulse Oximetry 92 Oxygen Delivery Me thod Room Air 12/19/24 08:30 12/19/24 12:15 Temperature 98.2 F 99.2 F Pulse Rate [Left P ulse Oximeter] 84 84 Respiratory Rate 20 20 Blood Pressure [Le ft Arm] Blood Pressure [Ri ght Arm] 138/68 147/84 H Pulse Oximetry 94 94 Oxygen Delivery Me thod Room Air Room Air Documenting provider has reviewed patient's vital signs: yes DS: Data Imaging Chest x-ray: Radiologist's impression: INDICATION: Weakness TECHNIQUE: Chest radiograph 1 view COMPARISON: None FINDINGS: The sensitivity and specificity of the exam are severely limited by the patient`s body habitus. Mediastinum: Mild mediastinal widening is present and likely due to lipomatosis. The cardiac silhouette is mildly enlarged but may be accentuated by the portable technique. Lung: Both lungs are unremarkable in appearance. No sign of pleural effusion seen. No pneumothorax is identified. Bone and Soft tissue: Unremarkable for age. IMPRESSION: 1. The cardiac silhouette is mildly enlarged but may be accentuated by the portable technique. Discharge Plan Discharge Disposition: [facility] Date of Admission: 12/17/24 13:36 Attending Provider on Discharge: Hesham Carl Primary Care Provider: Provider,Not a Local Condition: Stable Discharge Medications: New sulfamethoxazole-trimethoprim [Bactrim] 400-80 mg tablet 1 tab PO BID Qty: 8 0RF amlodipine 2.5 mg tablet 2.5 mg PO DAILY Qty: 30 0RF Continued sennosides [senna] 8.6 mg tablet 8.6 mg PO DAILY Patient Comments: [NO ORIGINAL SIG] nystatin 100,000 unit/gram cream 1 applic topical DAILY Ocuvite with Lutein 300 mcg-200 mg-27 mg-2 mg tablet 1 tab PO DAILY carboxymethylcellulose sodium [Refresh Celluvisc] 1 % dropperette,gel 1 drp ophthalmic (eye) Q8H PRN Patient Comments: [NO ORIGINAL SIG] omeprazole 20 mg capsule,delayed release(DR/EC) 20 mg PO DAILY acetaminophen [Acetaminophen Extra Strength] 500 mg tablet 1,000 mg PO BID PRN Patient Comments: Take 2 tablet by mouth twice a day as needed for pain melatonin 3 mg capsule 3 mg PO HS PRN Held lisinopril 5 mg tablet 5 mg PO DAILY Hold Instructions: Resume on 12/24/24. Stop lisinopril while taking sulfa trimethoprim Patient Comments: TAKE ONE TABLET BY MOUTH EVERY MORNING Discharge Orders: Discharge Order (Routine); Ordered 12/19/24 Ordered By: Hesham Carl Activity Level: No Restrictions Discharge Diet: Regular Follow Up Appointments: Provider,Not a Local [Primary Care Provider] - Forms: [facility] Info Instructions Admit to: Assisted Living Discharge Potential: Poor Length of Stay: >90 days Can use facility standing orders?: Yes Code Status: DNR Rehab Potential: Poor Lab Orders: Basic metabolic panel in 6 days
== END 2024-12-19 10:45 ==
LOC: ED 12:58 → MEDSURG 13:37
PROVIDERS: Admitting Provider Family Medicine; Emergency Provider Internal Medicine; PCP Family Medicine; Visit Provider Family Medicine
DX: R41.0 Disorientation, unspecified (principal); N39.0 Urinary tract infection, site not specified; B96.20 Unspecified Escherichia coli [E. coli] as the cause of diseases classified elsewhere; Z16.29 Resistance to other single specified antibiotic; R53.1 Weakness; I10 Essential (primary) hypertension; R50.9 Fever, unspecified; F03.90 Unspecified dementia, unspecified severity, without behavioral disturbance, psychotic disturbance, mood disturbance, and anxiety; Z74.1 Need for assistance with personal care
CPT/HCPCS: 36415; 70450; 71045; 80053; 81001; 81003; 85025; 87086; 87631; 93005; 96365; 96366; 97112; 97116; 97161; 97165; 97535; 99283; 99285; A9270; G0378; J0696

== ENCOUNTER 2024-12-26 13:42 | Outpatient (REF) | payer BC, SELFPAY ==
[2024-12-26 14:43] LABS: Chloride* 103 mmol/L (96-114); Sodium* 135 mmol/L (135-149)
[2024-12-26 14:44] LABS: Potassium* 4.6 mmol/L (3.6-5.1)
[2024-12-26 14:46] LABS: Creatinine* 0.7 mg/dL (0.5-1.5); Estimated Glomerular Filt Rate 84 ml/min
[2024-12-26 14:47] LABS: Blood Urea Nitrogen* 10 mg/dL (7-30); Calcium* 9.5 mg/dL (8.4-10.6); Carbon Dioxide* 22 mmol/L (20-32); Glucose* 118 mg/dL (60-115)
[2024-12-26 14:52] LABS: Anion Gap 10 mEq/L (7-15)
== END 2024-12-26 13:43 | disposition home or self-care (01) ==
LOC: NPINS 13:42
PROVIDERS: PCP Family Medicine; Visit Provider Nurse Practitioner Gerontology
DX: R41.0 Disorientation, unspecified (principal)
CPT/HCPCS: 80048

== ENCOUNTER 2025-04-06 10:04 | Outpatient (REF) | payer BC, SELFPAY ==
[2025-04-06 10:15] LABS: Appearance Urine Cloudy (Clear); Bilirubin Urine Negative (Negative); Blood Urine Trace-intact (Negative); Color Urine Yellow (Yellow); Glucose Urine Negative (Negative); Ketones Urine Negative (Negative); Leukocyte Esterase Urine 3+ (Negative); Nitrite Urine Positive (Negative); Protein Urine 1+ (Negative); Specific Gravity Urine 1.015 (1.000-1.030)
[2025-04-06 10:29] LABS: RBC Urine 0-2 (0-2); WBC Urine >100 (0-5)
[2025-04-06 10:31] LABS: Bacteria Urine Many; Squamous Epithelial Cell Urine Many (None-Few); WBC Clumps Urine Moderate
== END 2025-04-06 10:05 | disposition home or self-care (01) ==
LOC: NPINS 10:04
PROVIDERS: PCP Family Medicine; Visit Provider Nurse Practitioner Gerontology
DX: R41.0 Disorientation, unspecified (principal); R82.90 Unspecified abnormal findings in urine
CPT/HCPCS: 81001; 87086

== ENCOUNTER 2025-04-17 17:05 | Outpatient (CLI) | payer BC, SELFPAY | END 2025-04-17 17:06 | disposition home or self-care (01) | LOC: AMB 04-18 14:44 | PROVIDERS: PCP Family Medicine; Visit Provider Family Medicine | DX: R41.82 Altered mental status, unspecified (principal); R29.810 Facial weakness | CPT/HCPCS: A0425; A0427 ==

== ENCOUNTER 2025-04-17 17:23 | Inpatient (IN) | payer BC, SELFPAY ==
[2025-04-17] VITALS (36 sets, daily range): BP systolic 128–179; BP diastolic 45–116; PULSE 60–82; RESP 9–25; TEMP 35.9–36.6; O2SAT 91–97
--- NOTE | 2025-04-17 17:28 | ED.GENADULT ---
HPI - General Adult General Date Seen: 04/17/25 Chief complaint: Neuro Symptoms/Altered Deficit Stated complaint: Stroke Time Seen by Provider: 04/17/25 17:28 History of Present Illness HPI narrative: 89-year-old female with a history of dementia is brought to the ER today by EMS from her assisted living facility with concern for stroke. A pre-hospital stroke team activation was called for this patient. History from paramedics is that she lives in assisted living. She does have dementia but it sounds like she is normally able to walk and speak. Beginning at about 16 50 today, her staff from the assisted living noticed that she abruptly had onset of difficulty understanding and difficulty speaking that they also noted a right facial droop. They also said the patient had some difficulty walking. Paramedics did not know if she actually had right-sided weakness. During transport patient had a slightly elevated blood pressure at 128/70. Blood sugar was 108. They have managed established 18 gauge IV. They do not have any other past medical history. [employer] does not even know the patient's 1st name but they do have paperwork with her. Paramedics report that the patient does have family members who were notified by her assisted living staff, but is unclear if those family members are coming here to the hospital. Patient is not able to answer any questions and cannot provide any further history. Per medical record: Was diagnosed with delirium in December because she was combative at her assisted living and was paranoid. At that time she had a low-grade temperature 99.6?. 80 she was feeling move. CBC showed a white count of 5.1, hemoglobin is 15.6, platelet count of 117 which was slightly low. BUN of 14, creatinine 0.7. Sodium 135, potassium 4.5, chloride 107, bicarb 21. LFTs were normal. Urinalysis showed 10-25 WBC/HPF. She was treated with Rocephin while in the ER for UTI. She was admitted to the hospitalist service at that time. Urine culture grew E coli with multiple antibiotic resistances. She also had poorly controlled hypertension. She was on lisinopril at home. They added amlodipine during her hospital stay. Per hospitalist History and physical, her mental status was not normal at that time. mildly anxious or agitated. She is not oriented to place or circumstances. She does give me her name. She is cooperative with history and physical exam. Additional history from her daughter, by phone. Her daughter lives in [place] but did answer her phone. Daughter notes that she does have a history of mild dementia but normally lives in assisted living, not in a memory care. She did have altered mental status with some combativeness in December when she had a UTI. Her mother seemed a little bit confused a few days ago so was checked again for UTI and found to have 1. Daughter is not sure if she is currently on antibiotics or if she just finished them. Daughter also notes that her assisted living staff recently had been noting increasing confusion and has started to mention possible transition to memory care rather than assisted living.. They also note that she was having some slurred speech perhaps yesterday. It is a little bit unclear if that was truly a dysarthria or if she was just confused. History is limited. Related Data Home Medications ?Medication ?Instructions ?Recorded ?Confirmed acetaminophen 500 mg tablet 1,000 mg PO BID PRN 11/14/22 12/17/24 (Acetaminophen Extra Strength) lisinopril 5 mg tablet 5 mg PO DAILY 11/14/22 12/17/24 Held on 12/19/24. Instructions: Resume on 12/24/24. Stop lisinopril while taking sulfa trimethoprim melatonin 3 mg capsule 3 mg PO HS PRN 11/14/22 12/17/24 carboxymethylcellulose sodium 1 % 1 drp ophthalmic (eye) Q8H PRN 12/17/24 12/17/24 eye gel in a dropperette (Refresh Celluvisc) nystatin 100,000 unit/gram topical 1 applic topical DAILY 12/17/24 12/17/24 cream omeprazole 20 mg capsule,delayed 20 mg PO DAILY 12/17/24 12/17/24 release sennosides 8.6 mg tablet (senna) 8.6 mg PO DAILY 12/17/24 12/17/24 vit A 300 mcg-C 200 mg-E 27 1 tab PO DAILY 12/17/24 12/17/24 mg-lutein 2 mg and minerals tablet (Ocuvite with Lutein) Previous Rx's ?Medication ?Instructions ?Recorded amlodipine 2.5 mg tablet 2.5 mg PO DAILY #30 tabs 12/19/24 sulfamethoxazole 400 1 tab PO BID #8 tabs 12/19/24 mg-trimethoprim 80 mg tablet (Bactrim) Allergies Allergy/AdvReac Type Severity Reaction Status Date / Time No Known Drug Allergies Allergy Verified 11/14/22 13:26 [facility] Medical History (Updated 04/17/25 @ 19:47 by Alen Dick MD) Hypertension ?I10 - Essential (primary) hypertension (ICD-10) Dementia ?F03.90 - Unspecified dementia, unspecified severity, without behavioral disturbance, psychotic disturbance, mood disturbance, and anxiety (ICD-10) Social History (Updated 12/17/24 @ 15:29 by Hesham Carl MD) Narrative: Patient likely lives at the [facility]. She is a former smoker. She does not drink alcohol. Unable to get any further history today. What is your current living situation?: I presently have a place to live Problems where you live: unable to answer Problems where you live details: NA In the past 12 months, utilities in danger of being shut off: no In past 12 months, lack of transportation kept you from medical appts, meetings, work, or getting things needed for daily living: unable to answer In the past 12 mos, have been you worried that your food would run out before you had money to buy more?: unable to answer In the past 12 mos, the food you bought just didn't last and you didn't have money to buy more?: unable to answer Highest level of school completed/degree received: high school graduate Smoking Status: Former smoker Do you use any of these nicotine containing products: None Second hand tobacco smoke exposure: No How often do you have a drink containing alcohol: never AUDIT-C Alcohol total score: 0 Non-prescribed substance use: denies use How often does anyone, including family, friends and others, physically hurt you: never How often does anyone, including family, friends and others, insult or talk down to you: never How often does anyone, including family, friends and others, threaten you with harm: never How often does anyone, including family, friends and others, scream or curse at you: never service: No Exam Narrative: Exam Narrative: Primary Survey: A- patent. No stridor. B- breathing easily. Lung sounds clear and equal. Oxygen saturation normal on room air C- no active bleeding. Blood pressure stable. Symmetric pulses and cap refill in 4 extremities. D- alert and oriented person but not place or date GCS 15. Constitutional: Appears well-developed and well-nourished. Alert. Conversant. Non toxic. HENT: Head: Atraumatic. No depressed skull fracture, Raccoon Eyes, Vyas's sign, or hemotympanum. Face normal. TMs normal Nose: Nose normal. Mouth/Throat: Oral mucosa is clear . Mucous membranes are bit dry. no trismus. Pharynx normal. Tonsils symmetric. No tonsillar enlargement, erythema, or exudate. Eyes: Conjunctivae normal. EOM normal. Pupils equal, round, and reactive to light. No scleral icterus. Neck: Normal range of motion. Neck supple. No tracheal deviation present. Cardiovascular: Normal rate, regular rhythm. No gallop. No friction rub. No murmur heard. Symmetric radial artery pulses Pulmonary/Chest: Effort normal. No stridor. No respiratory distress. No wheezes. No rales. No rhonchi . No tenderness. Abdominal: Soft. Bowel sounds normal. No distension. No mass. No tenderness. No rebound. No guarding. Musculoskeletal: RUE: Normal range of motion. No tenderness. No deformity LUE: Normal range of motion. No tenderness. No deformity RLE: Normal range of motion. No edema. No tenderness. No deformity LLE: Normal range of motion. No edema. No tenderness. No deformity Neurological: Mental status normal. Attention normal. Alert and oriented person and knows she is in the hospital, but is not oriented to date. GCS 15. She does have baseline memory and seems a bit confused. She is not a good historian. Speech fluent. No facial droop. Tongue protrudes in the midline. Cranial Nerves intact II-XII except I did not formally test gag or visual acuity. EOMI. Palate elevates symmetrically and tongue protrudes in the midline. Strength: 5/5 trapezius on the right and left 5/5 deltoid on the right and left 5/5 biceps on the right and left 5/5 triceps on the right and left 5/5 grab jack man on the right and left 5/5 thumb opposition on the right and left 5/5 finger abduction on the right and left 5/5 hip flexors (L3) on the right and left 5/5 quadriceps (L4) on the right and left 5/5 tibialis anterior on the right and left 5/5 EHL (L5) on the right and left 5/5 gastrocnemius (S1) on the right and left 5/5 hamstring on the right and left Sensation intact to light touch in both upper extremities (C4-T1) Sensation intact to light touch in Both lower extremities (L4-S1). Finger to nose and coordination normal. Skin: Skin is warm and dry. No rash noted. No pallor. Normal capillary refill. Psychiatric: Normal mood. Normal affect. Const: Vital Signs, click to edit/add: Vital Signs - 24 hr 04/17/25 17:30 04/17/25 17:37 04/17/25 17:38 Temperature 96.6 F L Pulse Rate 70 69 Pulse Rate [Pulse Oximeter] 65 Respiratory Rate 16 23 Blood Pressure 146/81 H 179/104 H Blood Pressure [Le ft Upper Arm] 146/65 H Pulse Oximetry 92 97 94 Oxygen Delivery Me thod Room Air 04/17/25 17:39 04/17/25 17:47 04/17/25 18:02 Temperature Pulse Rate 71 66 62 Pulse Rate [Pulse Oximeter] Respiratory Rate 23 16 Blood Pressure 151/87 H Blood Pressure [Le ft Upper Arm] Pulse Oximetry 95 95 94 Oxygen Delivery Me thod 04/17/25 18:03 04/17/25 18:15 04/17/25 18:17 Temperature Pulse Rate 65 68 67 Pulse Rate [Pulse Oximeter] Respiratory Rate 17 23 16 Blood Pressure 153/83 H Blood Pressure [Le ft Upper Arm] Pulse Oximetry 95 93 93 Oxygen Delivery Me thod 04/17/25 18:31 04/17/25 18:45 04/17/25 18:46 Temperature Pulse Rate 76 78 74 Pulse Rate [Pulse Oximeter] Respiratory Rate 18 9 L 16 Blood Pressure 155/81 H Blood Pressure [Le ft Upper Arm] Pulse Oximetry 95 94 93 Oxygen Delivery Me thod 04/17/25 18:47 04/17/25 19:00 04/17/25 19:01 Temperature Pulse Rate 73 66 72 Pulse Rate [Pulse Oximeter] Respiratory Rate 16 22 21 Blood Pressure 159/101 H Blood Pressure [Le ft Upper Arm] Pulse Oximetry 94 93 91 Oxygen Delivery Me thod 04/17/25 19:15 04/17/25 19:17 04/17/25 19:30 Temperature Pulse Rate 70 69 71 Pulse Rate [Pulse Oximeter] Respiratory Rate 21 18 25 H Blood Pressure 153/45 H Blood Pressure [Le ft Upper Arm] Pulse Oximetry 91 92 91 Oxygen Delivery Me thod 04/17/25 19:31 Temperature Pulse Rate 68 Pulse Rate [Pulse Oximeter] Respiratory Rate 17 Blood Pressure 169/83 H Blood Pressure [Le ft Upper Arm] Pulse Oximetry 92 Oxygen Delivery Me thod Course Course ED Course: Patient arrived by EMS and was a pre-hospital stroke team activation. We met the patient in the hallway and took her immediately for noncontrast head CT. During her initial evaluation she was not speaking or answering questions. My review of her head CT showed chronic findings but no acute bleed. We placed a stat page for Stroke Neurology. Although ever once we got her back to room 8 she was able to speak. I did my of formal physical exam in room 8 and she seemed to have had resolution of her initial symptoms. Speech was fluent. Facial droop was resolved. There was no unilateral weakness on her arms or legs. Discussed with stroke neurology, Dr. Israel. He would recommend admission for TIA workup. CT angio head neck today if kidney function will tolerate. Also aspirin 325 mg p.o. once for now. Starting tomorrow reduce to 81 mg per day. He recommends MRI tomorrow and neurology will consult. Right now our working diagnosis is TIA. Phone call to her son but he did not answer. Message left. phone call to her daughter. We had a long discussion. See HPI. Will do workup for possible infection or metabolic causes of confusion although patient presents presenting symptoms tonight I suspect this probably was a true TIA. Vital Signs Vital signs: Initial Vital Signs Temperature 96.6 F L 04/17/25 17:30 Temperature Source Temporal Artery Scan 04/17/25 17:30 Pulse Rate 65 04/17/25 17:30 Respiratory Rate 16 04/17/25 17:30 Blood Pressure 146/65 H 04/17/25 17:30 Blood Pressure Mean 92 04/17/25 17:30 Blood Pressure Position Supine 04/17/25 17:30 Pulse Oximetry 92 04/17/25 17:30 Oxygen Delivery Method Room Air 04/17/25 17:30 Vital Signs Temperature 96.6 F L 04/17/25 17:30 Pulse Rate 65 04/17/25 17:30 Respiratory Rate 16 04/17/25 17:30 Blood Pressure 146/65 H 04/17/25 17:30 Pulse Oximetry 92 04/17/25 17:30 Oxygen Delivery Method Room Air 04/17/25 17:30 Temperature 96.6 F L 04/17/25 17:30 Pulse Rate 68 04/17/25 19:31 Respiratory Rate 17 04/17/25 19:31 Blood Pressure 169/83 H 04/17/25 19:31 Pulse Oximetry 92 04/17/25 19:31 Oxygen Delivery Method Room Air 04/17/25 17:30 Medications Administered Medications: Discontinued Medications Generic Name Dose Route Start Last Admin Trade Name Hudson PRN Reason Stop Dose Admin Aspirin 325 mg 04/17/25 17:46 04/17/25 18:09 Aspirin Ec 325 Mg Tablet PO 04/17/25 17:47 325 mg ONCE ONE Administration Medical Decision Making MDM Narrative Medical decision making narrative: 89-year-old female with history of mild dementia brought to the ER today with concern for stroke symptoms that began at about 4:50 p.m.. Per EMS and when she arrived here she did seem to have an expressive aphasia. However symptoms resolved shortly after arrival here in the ER. On my neuro exam she has no definite ongoing neuro symptoms. At this point she would not be an ongoing candidate for thrombolytics since symptoms have already resolved. Suspicion is for possible TIA. based on our initial discussion with stroke neurology plan was to get start aspirin and admit here for TIA workup with cardiac monitoring overnight and echo and MRI tomorrow. Head CT was ultimately read as normal. No bleed but some chronic findings. CT angiogram does show evidence for moderate severe stenosis in the bilateral posterior cerebral arteries as well as in the left M2 segment of the left MCA and in the A3 segment of the right PRICILA. We had a 2nd conversation with stroke neurology about the CTA findings. They continue to recommend ASA and admit. Also consider possible delirium causing altered mental status, although with the patient's presenting symptoms were more concerned about stroke. She does have a history of UTIs and apparently was treated for 1 recently. Cath urine today looks normal. Kidney function looks normal. Sodium and electrolytes look normal save for mildly low bicarb, possibly due to dehydration. CBC shows a normal white count, normal hemoglobin but a low platelet count at 97. It had been 117 in December. She is not febrile. No clear evidence for sepsis Discussed with hospitalist, Dr. Balderrama who graciously agrees to accept for admission. Please see hospitalist notes for further details about admission status and further workup. Lab Data Labs: Lab Results 04/17/25 04/17/25 04/17/25 Range/Units 17:54 18:05 18:50 WBC 6.51 (4.50-11.00) K/uL RBC 4.66 (4.00-5.20) m/uL Hgb 14.2 (12.0-16.0) gm/dL Hct 43.2 (33.0-51.0) % MCV 93 (80-100) fL MCH 31 (26-34) pg MCHC 33 (32-36) gm/dL RDW Coeff of Lalo 13.1 (11.5-15.5) % Plt Count 97 L (140-440) K/uL Neut % (Auto) 52.2 (42.0-72.0) % Lymph % (Auto) 29.8 (20-44) % [place]berg % (Auto) 11.5 H (0.0-11.0) % Eos % (Auto) 5.7 (0.0-7.0) % Baso % (Auto) 0.6 (0.0-3.0) % Neut # (Auto) 3.40 (1.7-7.0) K/uL Lymph # (Auto) 1.94 (0.90-2.90) K/uL Kleberg # (Auto) 0.70 (0.00-0.90) K/UL Eos # (Auto) 0.37 (0.00-0.50) K/uL Baso # (Auto) 0.04 (0.00-0.30) K/uL Abs Immat Gran (auto) 0.01 (0.00-0.30) K/uL Imm/Tot Granulo (auto) 0.2 % INR 1.08 (0.91-1.10) APTT 30 (23-33) Seconds VBG pH 7.475 H (7.32-7.43) VBG pCO2 30 L (40-50) mmHG VBG pO2 62.8 H (25-47) mmHG VBG HCO3 22 (21-28) mmol/L Sodium 134 L (135-149) mmol/L Potassium 4.5 (3.6-5.1) mmol/L Chloride 105 (96-114) mmol/L Carbon Dioxide 19 L (20-32) mmol/L Anion Gap 10 (7-15) mEq/L BUN 16 (7-30) mg/dL Creatinine 0.7 (0.5-1.5) mg/dL Estimated GFR 83 ml/min Glucose 94 (60-115) mg/dL Lactate 1.5 (0.5-1.9) mmol/L Calcium 9.1 (8.4-10.6) mg/dL Troponin I < 0.01 (0.01-0.04) ng/mL Urine Color Yellow (Yellow) Urine Appearance Clear (Clear) Urine pH 7.0 (5.0-8.5) Ur Specific [place] 1.015 (1.000-1.030) Urine Protein Negative (Negative) Urine Glucose (UA) Negative (Negative) Urine Ketones Negative (Negative) Urine Blood Negative (Negative) Urine Nitrite Negative (Negative) Urine Bilirubin Negative (Negative) Urine Urobilinogen 1.0 (0.2-1.0) Ur Leukocyte Esterase Negative (Negative) Urine RBC 0-2 (0-2) Urine WBC 0-2 (0-5) Ur Squamous Epith Cells None (None-Few) Urine Bacteria Few A (None) POC Creatinine 0.9 (0.6-1.3) mg/dl Imaging Data CTA Head and NEck: Attestation: I have reviewed the pertinent imaging results. Radiologist's impression: Preliminary report CTA Head: 1. Multifocal moderate and severe stenosis, P2 segments, bilateral internet marketing intern. 2. Moderate stenosis, M2 segment, left MCA. 3. Moderate stenosis, A3 segment, right PRICILA. CTA NECK: 1. [id number] narrowing, right proximal vertebral artery. CT scan - head: Attestation: I have reviewed the pertinent imaging results. Radiologist's impression: Impression: Chronic infarcts and senescent changes with no acute intracranial abnormality appreciated. Chest x-ray: Attestation: I have reviewed the pertinent imaging results. Radiologist's impression: IMPRESSION: Low lung volumes with interstitial opacities. No acute or significant findings. No change. ECG Data Attestation: I personally reviewed and interpreted this ECG as follows: Interpretation: Normal sinus rhythm Rate: 69 DE: 184 QRS axis: Left axis deviation. Wide complex QRS ST segment/T wave: No ST segment elevation or depression QTc: 443 Compared to 12/17/2024 definite change. Discharge Plan Discharge Clinical Impression: Brain TIA Patient Disposition: Admitted As Observation
--- NOTE | 2025-04-17 17:32 | CRLHL7_ITS ---
For Patients: As a result of the Cures Act, medical imaging exams and procedure reports are released immediately into your electronic medical record. You may view this report before your referring provider. If you have questions, please contact your health care provider. INDICATION: Chest pain. TECHNIQUE: Chest 1 views. COMPARISON: December 17, 2024. FINDINGS: Cardiovascular and mediastinum: Stable heart size and vasculature. Lungs and pleural spaces: Low lung volumes with interstitial opacities. No sign of pleural effusion. No pneumothorax. Bones and soft tissues: No significant findings. IMPRESSION: Low lung volumes with interstitial opacities. No acute or significant findings. No change. Dictated by Christiano Saunders MD @ 04/17/2025 6:44:28 PM (Electronically Signed)
--- NOTE | 2025-04-17 17:32 | CRLHL7_ITS ---
For Patients: As a result of the Century Cures Act, medical imaging exams and procedure reports are released immediately into your electronic medical record. You may view this report before your referring provider. If you have questions, please contact your health care provider. Indication: Aphasia, right facial droop Technique: Noncontrast CT through the head with multiplanar reformats Comparison: CT head performed 12/17/2024 Findings: Brain: No acute hemorrhage. No acute infarct. No significant mass effect or midline shift. No gross evidence of a mass lesion or cerebral edema. Severe chronic microvascular ischemic disease. [id number] global parenchymal volume loss. Chronic basal ganglia hypodensities noted. 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 Ventricles: No acute abnormality appreciated. Orbits, sinuses, mastoids: No acute abnormality appreciated. Calvarium and soft tissues: No acute abnormality appreciated. Impression: Chronic infarcts and senescent changes with no acute intracranial abnormality appreciated. Please note that all CT scans at this facility use dose modulation, iterative reconstruction, and/or weight-based dosing when appropriate to reduce radiation dose to as low as reasonably achievable. Dictated by Nish Lorenz MD @ 04/17/2025 6:06:14 PM (Electronically Signed)
--- NOTE | 2025-04-17 17:46 | CRLHL7_ITS ---
For Patients: As a result of the Century Cures Act, medical imaging exams and procedure reports are released immediately into your electronic medical record. You may view this report before your referring provider. If you have questions, please contact your health care provider. INDICATION: Acute stroke. TECHNIQUE: CTA neck with contrast bolus tracking, 3D angiographic rendering using maximum intensity projection (MIP) and images permanently archived. FINDINGS: There is carotid atherosclerosis bilaterally. There is no significant carotid artery stenosis or dissection. There is no significant vertebral artery stenosis or dissection. The soft tissues of the neck are within normal limits. Degenerative changes are noted in the cervical spine. Emphysema is present in the visualized lungs. IMPRESSION: No significant carotid or vertebral artery stenosis or dissection. Please note that all CT scans at this facility use dose modulation, iterative reconstruction, and/or weight-based dosing when appropriate to reduce radiation dose to as low as reasonably achievable. Dictated by Sloan Medina MD @ 04/18/2025 7:23:23 AM (Electronically Signed)
--- NOTE | 2025-04-17 17:47 | CRLHL7_ITS ---
For Patients: As a result of the Century Cures Act, medical imaging exams and procedure reports are released immediately into your electronic medical record. You may view this report before your referring provider. If you have questions, please contact your health care provider. INDICATION: Acute stroke. TECHNIQUE: CTA head with contrast bolus tracking, 3D angiographic rendering using maximum intensity projection (MIP) and images permanently archived. FINDINGS: There is extensive scattered intracranial atherosclerotic disease. There is normal opacification of the intracranial vasculature. There is no large vessel occlusion. No aneurysm is identified. IMPRESSION: Extensive scattered intracranial atherosclerotic disease. Please note that all CT scans at this facility use dose modulation, iterative reconstruction, and/or weight-based dosing when appropriate to reduce radiation dose to as low as reasonably achievable. Dictated by Sloan Medina MD @ 04/18/2025 7:21:43 AM (Electronically Signed)
[2025-04-17] MEDS: ASPIRIN EC 325 MG TABLET PO (18:09)
[2025-04-17 18:12] LABS: Creatinine, Point-of-Care* 0.9 mg/dl (0.6-1.3)
[2025-04-17 18:17] LABS: HCO3 VBG 22 mmol/L (21-28); Lactate* 1.5 mmol/L (0.5-1.9); PCO2 VBG 30 mmHG (40-50); PO2 VBG 62.8 mmHG (25-47); pH VBG 7.475 (7.32-7.43)
[2025-04-17 18:39] LABS: Basophils Absolute Auto 0.04 K/uL (0.00-0.30); Basophils Percent Auto 0.6 % (0.0-3.0); Eosinophils Absolute Auto 0.37 K/uL (0.00-0.50); Eosinophils Percent Auto 5.7 % (0.0-7.0); Hematocrit 43.2 % (33.0-51.0); Hemoglobin* 14.2 gm/dL (12.0-16.0); Immature Granulocytes Abs Auto 0.01 K/uL (0.00-0.30); Immature Granulocytes Pct Auto 0.2 %; Lymphocytes Absolute Auto 1.94 K/uL (0.90-2.90); Lymphocytes Percent Auto 29.8 % (20-44); Mean Corpuscular HGB Conc 33 gm/dL (32-36); Mean Corpuscular Hemoglobin 31 pg (26-34); Mean Corpuscular Volume 93 fL (80-100); Monocytes Percent Auto 11.5 % (0.0-11.0); Neutrophils Percent Auto 52.2 % (42.0-72.0); Platelet Count* 97 K/uL (140-440); RDW Coefficient of Variation % 13.1 % (11.5-15.5); Red Blood Count 4.66 m/uL (4.00-5.20); White Blood Count* 6.51 K/uL (4.50-11.00)
[2025-04-17 18:44] LABS: Slide Review Reflex No
[2025-04-17 18:46] LABS: INR 1.08 (0.91-1.10); Prothrombin Time 14.9 Seconds
[2025-04-17 18:47] LABS: Partial Thromboplastin Time* 30 Seconds (23-33)
[2025-04-17 18:49] LABS: Chloride* 105 mmol/L (96-114)
[2025-04-17 18:50] LABS: Potassium* 4.5 mmol/L (3.6-5.1); Sodium* 134 mmol/L (135-149)
[2025-04-17 18:53] LABS: Anion Gap 10 mEq/L (7-15); Blood Urea Nitrogen* 16 mg/dL (7-30); Calcium* 9.1 mg/dL (8.4-10.6); Carbon Dioxide* 19 mmol/L (20-32); Creatinine* 0.7 mg/dL (0.5-1.5); Estimated Glomerular Filt Rate 83 ml/min; Glucose* 94 mg/dL (60-115)
[2025-04-17 18:58] LABS: Appearance Urine Clear (Clear); Bilirubin Urine Negative (Negative); Blood Urine Negative (Negative); Color Urine Yellow (Yellow); Glucose Urine Negative (Negative); Ketones Urine Negative (Negative); Leukocyte Esterase Urine Negative (Negative); Nitrite Urine Negative (Negative); Protein Urine Negative (Negative); Specific Gravity Urine 1.015 (1.000-1.030)
[2025-04-17 19:11] LABS: RBC Urine 0-2 (0-2); WBC Urine 0-2 (0-5)
[2025-04-17 19:12] LABS: Bacteria Urine Few
[2025-04-17 19:13] LABS: Troponin I* < 0.01 ng/mL (0.01-0.04)
--- NOTE | 2025-04-17 22:05 | PM.IMHP1 ---
Assessment and Plan Assessment and plan (1) Brain TIA: Problem comment: - Symptoms resolved - Stroke neuro consulted from ER - Start atorvastatin for cerebral athrosclerosis, start Eliquis for suspected afib, as below, continue to monitor overnight on cardiac telemetry, obtain MR brain and ECHO, PT and OT consults, q4h neuro checks overnight - hold lisinopril and amlodipine for now to allow for permissive hypertension reassess this when the results of the MRI are back. Status: Acute (2) Atrial fib/flutter, transient: Problem comment: - irregular rhythm on telemetry, occasionally rapid rate, these episodes have appeared to be afib, but difficult to capture on EKG. - Will start Eliquis since patient is here with TIA. May need Zio patch and outpatient cardiology f/u Status: Suspected (3) Dementia: Problem comment: Chronic. Severity unknown - 12/19/2024 [place] at 10 out of 30 - currently living in assisted living facility, not memory care yet Status: Chronic Hospitalist- H&P: HPI History of Present Illness Date Seen: 04/17/25 Chief complaint: Stroke Narrative: Luz Marina Harrison is a 89 year old female with dementia who lives in an assisted living facility and was with a caregiver there when they noticed that she had sudden onset of difficulty speaking and walking and right-sided facial droop at 4:50 p.m.. EMS was called and her symptoms started to resolve when she went into the CT scanner and are now completely resolved. She has no history of atrial fibrillation that we are aware of that she is aware of, but there was an irregular tachyarrhythmia seen in the emergency department that is suspected to be AFib. She also had a similar irregular rhythm here upon going to the floor and, although we were unable to capture it on EKG, it appeared to be AFib on the monitor. She denies any symptoms of palpitations, irregular rhythm, chest pain or shortness of breath. Review of Systems Status of ROS: Reports: 10 or more systems reviewed and unremarkable except as noted in History and below Medical Decision Making Medical Decision Making Code Status: DNR [facility] Medical History (Updated 04/18/25 @ 01:14 by Kasey Balderrama MD) Dementia ?F03.90 - Unspecified dementia, unspecified severity, without behavioral disturbance, psychotic disturbance, mood disturbance, and anxiety (ICD-10) UTI (urinary tract infection) ?N39.0 - Urinary tract infection, site not specified (ICD-10) Hypertension ?I10 - Essential (primary) hypertension (ICD-10) Social History (Updated 04/17/25 @ 23:05 by Kasey Balderrama MD) Narrative: Patient lives in assisted living, not memory care, likely lives at the [facility]. She is a former smoker, hasn't smoked for many years. She does not drink alcohol. What is your current living situation?: I presently have a place to live Problems where you live: unable to answer Problems where you live details: NA In the past 12 months, utilities in danger of being shut off: no In past 12 months, lack of transportation kept you from medical appts, meetings, work, or getting things needed for daily living: unable to answer In the past 12 mos, have been you worried that your food would run out before you had money to buy more?: unable to answer In the past 12 mos, the food you bought just didn't last and you didn't have money to buy more?: unable to answer Highest level of school completed/degree received: high school graduate Smoking Status: Former smoker Do you use any of these nicotine containing products: None Second hand tobacco smoke exposure: No How often do you have a drink containing alcohol: never AUDIT-C Alcohol total score: 0 Non-prescribed substance use: denies use How often does anyone, including family, friends and others, physically hurt you: never How often does anyone, including family, friends and others, insult or talk down to you: never How often does anyone, including family, friends and others, threaten you with harm: never How often does anyone, including family, friends and others, scream or curse at you: never service: No Meds Home Medications and Allergies Home Medications ?Medication ?Instructions ?Recorded ?Confirmed ?Type acetaminophen 500 mg tablet 1,000 mg PO BID PRN 11/14/22 12/17/24 History (Acetaminophen Extra Strength) lisinopril 5 mg tablet 5 mg PO DAILY 11/14/22 12/17/24 History Held on 12/19/24. Instructions: Resume on 12/24/24. Stop lisinopril while taking sulfa trimethoprim melatonin 3 mg capsule 3 mg PO HS PRN 11/14/22 12/17/24 History carboxymethylcellulose sodium 1 % 1 drp ophthalmic (eye) Q8H PRN 12/17/24 12/17/24 History eye gel in a dropperette (Refresh Celluvisc) nystatin 100,000 unit/gram topical 1 applic topical DAILY 12/17/24 12/17/24 History cream omeprazole 20 mg capsule,delayed 20 mg PO DAILY 12/17/24 12/17/24 History release sennosides 8.6 mg tablet (senna) 8.6 mg PO DAILY 12/17/24 12/17/24 History vit A 300 mcg-C 200 mg-E 27 1 tab PO DAILY 12/17/24 12/17/24 History mg-lutein 2 mg and minerals tablet (Ocuvite with Lutein) amlodipine 2.5 mg tablet 2.5 mg PO DAILY #30 tabs 12/19/24 Rx sulfamethoxazole 400 1 tab PO BID #8 tabs 12/19/24 Rx mg-trimethoprim 80 mg tablet (Bactrim) Allergies Allergy/AdvReac Type Severity Reaction Status Date / Time No Known Drug Allergies Allergy Verified 11/14/22 13:26 Exam Narrative: Exam Narrative: General: No acute distress. Awake alert oriented to self and place, but having some trouble with the details of situation. HEENT: Normocephalic atraumatic, pupils equally round and reactive to light and accommodation. Oropharynx clear. Mucous membranes are moist. No cervical lymphadenopathy, thyromegaly or carotid bruits. No JVD. Cardiovascular: Irregular at times, otherwise regular rate rhythm. No murmurs, gallops, or rubs. Chest: No increased work of breathing. Clear to auscultation bilaterally. No crackles or wheezes. Abdomen: Bowel sounds present. Soft, nondistended, nontender. No hepatosplenomegaly or masses. Extremities: No edema, no cyanosis or clubbing. Skin: No jaundice, no pallor, no rashes. Neuro: There are no focal deficits. Romberg is negative. Cranial nerves 2-12 are intact. Extraocular movements are full. No nystagmus. No facial asymmetry. Tongue is midline. Peripheral vision and vision are grossly intact. Strength is 5/5 in all 4 extremities. Light touch sensation is intact in face body and extremities. Coordination is intact in upper and lower extremities. Const: Vital Signs, click to edit/add: Vital Signs - 24 hr 04/17/25 17:30 04/17/25 17:37 04/17/25 17:38 Temperature 96.6 F L Pulse Rate 70 69 Pulse Rate [Left R adial] Pulse Rate [Pulse Oximeter] 65 Respiratory Rate 16 23 Blood Pressure 146/81 H 179/104 H Blood Pressure [Le ft Arm] Blood Pressure [Le ft Upper Arm] 146/65 H Pulse Oximetry 92 97 94 Oxygen Delivery Me thod Room Air 04/17/25 17:39 04/17/25 17:47 04/17/25 18:02 Temperature Pulse Rate 71 66 62 Pulse Rate [Left R adial] Pulse Rate [Pulse Oximeter] Respiratory Rate 23 16 Blood Pressure 151/87 H Blood Pressure [Le ft Arm] Blood Pressure [Le ft Upper Arm] Pulse Oximetry 95 95 94 Oxygen Delivery Me thod 04/17/25 18:03 04/17/25 18:15 04/17/25 18:17 Temperature Pulse Rate 65 68 67 Pulse Rate [Left R adial] Pulse Rate [Pulse Oximeter] Respiratory Rate 17 23 16 Blood Pressure 153/83 H Blood Pressure [Le ft Arm] Blood Pressure [Le ft Upper Arm] Pulse Oximetry 95 93 93 Oxygen Delivery Me od 04/17/25 18:31 04/17/25 18:45 04/17/25 18:46 Temperature Pulse Rate 76 78 74 Pulse Rate [Left R adial] Pulse Rate [Pulse Oximeter] Respiratory Rate 18 9 L 16 Blood Pressure 155/81 H Blood Pressure [Le ft Arm] Blood Pressure [Le ft Upper Arm] Pulse Oximetry 95 94 93 Oxygen Delivery Me od 04/17/25 18:47 04/17/25 19:00 04/17/25 19:01 Temperature Pulse Rate 73 66 72 Pulse Rate [Left R adial] Pulse Rate [Pulse Oximeter] Respiratory Rate 16 22 21 Blood Pressure 159/101 H Blood Pressure [Le ft Arm] Blood Pressure [Le ft Upper Arm] Pulse Oximetry 94 93 91 Oxygen Delivery Me thod 04/17/25 19:15 04/17/25 19:17 04/17/25 19:30 Temperature Pulse Rate 70 69 71 Pulse Rate [Left R adial] Pulse Rate [Pulse Oximeter] Respiratory Rate 21 18 25 H Blood Pressure 153/45 H Blood Pressure [Le ft Arm] Blood Pressure [Le ft Upper Arm] Pulse Oximetry 91 92 91 Oxygen Delivery Me od 04/17/25 19:31 04/17/25 19:32 04/17/25 19:45 Temperature Pulse Rate 68 69 70 Pulse Rate [Left R adial] Pulse Rate [Pulse Oximeter] Respiratory Rate 17 21 Blood Pressure 169/83 H Blood Pressure [Le ft Arm] Blood Pressure [Le ft Upper Arm] Pulse Oximetry 92 91 [facility] 19:46 04/17/25 20:00 04/17/25 20:01 Temperature Pulse Rate 72 71 68 Pulse Rate [Left R adial] Pulse Rate [Pulse Oximeter] Respiratory Rate 14 16 Blood Pressure 159/98 H 140/116 H Blood Pressure [Le ft Arm] Blood Pressure [Le ft Upper Arm] Pulse Oximetry 92 94 95 [facility] 04/17/25 20:02 04/17/25 20:15 04/17/25 20:16 Temperature Pulse Rate 60 82 75 Pulse Rate [Left R adial] Pulse Rate [Pulse Oximeter] Respiratory Rate 12 14 11 L Blood Pressure 128/105 H Blood Pressure [Le ft Arm] Blood Pressure [Le ft Upper Arm] Pulse Oximetry 93 92 92 [facility] 04/17/25 20:17 04/17/25 20:55 04/17/25 20:56 Temperature 97.4 F L 97.4 F L Pulse Rate 73 Pulse Rate [Left R adial] 73 73 Pulse Rate [Pulse Oximeter] Respiratory Rate 13 16 16 Blood Pressure Blood Pressure [Le ft Arm] 138/86 138/86 Blood Pressure [Le ft Upper Arm] Pulse Oximetry 92 94 94 [facility] Room Air 04/17/25 21:06 04/17/25 21:49 Temperature Pulse Rate Pulse Rate [Left R adial] 73 Pulse Rate [Pulse Oximeter] Respiratory Rate 16 Blood Pressure Blood Pressure [Le ft Arm] Blood Pressure [Le ft Upper Arm] Pulse Oximetry 94 [facility] Hospitalist - H&P: Result Labs Labs: Short CBC 04/17/25 Range/Units 18:05 WBC 6.51 (4.50-11.00) K/uL Hgb 14.2 (12.0-16.0) gm/dL Hct 43.2 (33.0-51.0) % Plt Count 97 L (140-440) K/uL BMP 04/17/25 18:05 Sodium 134 L Potassium 4.5 Chloride 105 Carbon Dioxide 19 L BUN 16 Creatinine 0.7 Glucose 94 Calcium 9.1 Cardiac Enzymes 04/17/25 Range/Units 18:05 Troponin I < 0.01 (0.01-0.04) ng/mL Urine 04/17/25 Range/Units 18:50 Urine Color Yellow (Yellow) Urine Appearance Clear (Clear) Urine pH 7.0 (5.0-8.5) Ur Specific [place] 1.015 (1.000-1.030) Urine Protein Negative (Negative) Urine Glucose (UA) Negative (Negative) 04/17/2025 5:49 p.m. EKG: Normal sinus rhythm, 69 beats per minute, left axis deviation, anterolateral infarct, age undetermined. Ordering Physician: Alen Dick M.D. Date of Service: 04/17/25 Procedure(s): XR chest 1V Accession Number(s): [id number] cc: Mando Blount M.D.; Alen Dick M.D.~ For Patients: As a result of the Cures Act, medical imaging exams and procedure reports are released immediately into your electronic medical record. You may view this report before your referring provider. If you have questions, please contact your health care provider. INDICATION: Chest pain. TECHNIQUE: Chest 1 views. COMPARISON: December 17, 2024. FINDINGS: Cardiovascular and mediastinum: Stable heart size and vasculature. Lungs and pleural spaces: Low lung volumes with interstitial opacities. No sign of pleural effusion. No pneumothorax. Bones and soft tissues: No significant findings. IMPRESSION: Low lung volumes with interstitial opacities. No acute or significant findings. No change. Dictated by Christiano Saunders MD @ 04/17/2025 6:44:28 PM (Electronically Signed) Ordering Physician: Alen Dick M.D. Date of Service: 04/17/25 Procedure(s): CT head/brain wo con Accession Number(s): [id number] cc: Mando Blount M.D.; Alen Dick M.D.~ For Patients: As a result of the Cures Act, medical imaging exams and procedure reports are released immediately into your electronic medical record. You may view this report before your referring provider. If you have questions, please contact your health care provider. Indication: Aphasia, right facial droop Technique: Noncontrast CT through the head with multiplanar reformats Comparison: CT head performed 12/17/2024 Findings: Brain: No acute hemorrhage. No acute infarct. No significant mass effect or midline shift. No gross evidence of a mass lesion or cerebral edema. Severe chronic microvascular ischemic disease. [id number] global parenchymal volume loss. Chronic basal ganglia hypodensities noted. 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 Ventricles: No acute abnormality appreciated. Orbits, sinuses, mastoids: No acute abnormality appreciated. Calvarium and soft tissues: No acute abnormality appreciated. Impression: Chronic infarcts and senescent changes with no acute intracranial abnormality appreciated. Please note that all CT scans at this facility use dose modulation, iterative reconstruction, and/or weight-based dosing when appropriate to reduce radiation dose to as low as reasonably achievable. Dictated by Nish Lorenz MD @ 04/17/2025 6:06:14 PM (Electronically Signed)
[2025-04-17] MEDS: APIXABAN 5 MG TABLET PO (22:33)
[2025-04-18] VITALS (13 sets, daily range): BP systolic 108–164; BP diastolic 63–94; PULSE 52–81; RESP 14–16; TEMP 36.2–36.8; O2SAT 90–96
--- NOTE | 2025-04-18 03:25 | PC.NURSE ---
Pt came to floor suspected of possible TIA earlier in day. All symptoms appear to be resolved. Pt does have dementia and comes from [facility]. CT neg. MRI Wed. Pt up A1 with walker and voiding. Pleasant and cooperative. VS unremarkable.
--- NOTE | 2025-04-18 07:00 | CRLHL7_ITS ---
For Patients: As a result of the Century Cures Act, medical imaging exams and procedure reports are released immediately into your electronic medical record. You may view this report before your referring provider. If you have questions, please contact your health care provider. INDICATION: Transient ischemic attack. TECHNIQUE: Multisequence multiplanar MRI of the brain prior to and following administration 16 cc Dotarem gadolinium based intravenous contrast. COMPARISON: Correlated with CT head dated earlier the same day 04/17/2025. FINDINGS: Punctate focus of hyperintensity on diffusion-weighted imaging within the right precentral gyrus (series 3, image 42), with intermediate signal on the ADC map and mild associated T2/FLAIR hyperintensity (series 6, image 32). No evidence of hemorrhagic conversion. Chronic infarct within the left frontal centrum semiovale with associated hemosiderin staining. Two punctate foci of susceptibility artifact within the adjacent left frontal (series 7, image 37) and temporal (series 7, image 27) lobes. Scattered foci of T2 prolongation elsewhere within the supratentorial white matter typical of chronic small vessel ischemic changes. Moderate diffuse parenchymal volume loss. The ventricles are proportional to the sulci. Flow voids in the larger intracranial arteries are preserved. Normal calvarial bone marrow signal intensity. Bilateral pseudophakia. The paranasal sinuses and mastoid air cells are predominantly clear. IMPRESSION: 1. Punctate focus of hyperintensity on diffusion-weighted imaging within the right precentral gyrus (series 3, image 42) suspicious for tiny subacute infarct. 2. No intracranial mass effect or focus of abnormal enhancement. 3. 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 4. Two punctate foci of adjacent susceptibility artifact consistent with sequela of prior microhemorrhage. 5. Moderate diffuse parenchymal volume loss and chronic small vessel ischemic changes. Dictated by Jorge Luis Haider MD @ 04/18/2025 12:41:12 PM (Electronically Signed)
[2025-04-18] MEDS: OMEPRAZOLE 20 MG CAPSULE DR PO (09:05)
[2025-04-18] MEDS: APIXABAN 5 MG TABLET PO ×2 (09:06→20:34)
[2025-04-18] MEDS: SENNOSIDES 1 TAB TABLET PO (09:06)
[2025-04-18] MEDS: SODIUM CHLORIDE 0.9 % (FLUSH) 10 ML SYRINGE 5 ML IVF ×2 (09:06→20:35)
--- NOTE | 2025-04-18 12:49 | PM.IMPN1 ---
Assessment and Plan Assessment and plan (1) Paroxysmal atrial fibrillation: Problem comment: Anticoagulate with Eliquis and initiate cautious rate control with metoprolol given current stroke with permissive hypertension Status: Acute (2) Stroke: Problem comment: Small stroke in right precentral gyrus. Clinically appears to be mostly resolved. Anticoagulation and statin. Status: Acute (3) Dementia: Problem comment: Chronic. Severity unknown - 12/19/2024 [place] at 10 out of 30 - currently living in assisted living facility, not memory care yet Status: Chronic Plan Continue in hospital for evaluation by therapy, institution of treatment for AFib and acute stroke, disposition planning. Total Time Spent Total Time Spent: Total time spent today is 55 minutes in reviewing outside records, discussion with patient's family and other providers ongoing evaluation and management of paroxysmal AFib and stroke Subjective Date Seen: 04/18/25 Interval history: Luz Marina Harrison is a 89 year old female with dementia who lives in an assisted living facility and was with a caregiver there when they noticed that she had sudden onset of difficulty speaking and walking and right-sided facial droop at 4:50 p.m.. EMS was called and her symptoms started to resolve when she went into the CT scanner and are now completely resolved. She has no history of atrial fibrillation that we are aware of that she is aware of, but there was an irregular tachyarrhythmia seen in the emergency department that is suspected to be AFib. She also had a similar irregular rhythm here upon going to the floor and, although we were unable to capture it on EKG, it appeared to be AFib on the monitor. 04/18/2025: Patient has moderately severe dementia with a [place] of 10/30 in December. She is scheduled to go to a memory care facility tomorrow. She is unable to give any significant history at this time. She tells me she has no concerns. With her last hospital stay she did have some delirium. She has been in an out of atrial fibrillation during this hospital stay currently in sinus rhythm Exam Narrative: Exam Narrative: She is alert and appears in no distress. Speech is relatively normal without obvious slurring or word-finding difficulties. Speech comprehension is good and she follows instructions and commands quite well. Head is without trauma. Eyes normal. No significant facial asymmetry. Respirations are clear to auscultation. Cardiovascular: S1, S2, relatively regular rhythm. Abdomen: Bowel sounds active. Abdomen is soft without tenderness or mass she has full strength in both upper and lower extremities and symmetric strength in upper and lower extremities. Const: Vital Signs, click to edit/add: Vital Signs - 24 hr 04/17/25 17:30 04/17/25 17:37 04/17/25 17:38 Temperature 96.6 F L Pulse Rate 70 69 Pulse Rate [Left R adial] Pulse Rate [Pulse Oximeter] 65 Respiratory Rate 16 23 Blood Pressure 146/81 H 179/104 H Blood Pressure [Le ft Arm] Blood Pressure [Le ft Upper Arm] 146/65 H Pulse Oximetry 92 97 94 Oxygen Delivery Me thod Room Air 04/17/25 17:39 04/17/25 17:47 04/17/25 18:02 Temperature Pulse Rate 71 66 62 Pulse Rate [Left R adial] Pulse Rate [Pulse Oximeter] Respiratory Rate 23 16 Blood Pressure 151/87 H Blood Pressure [Le ft Arm] Blood Pressure [Le ft Upper Arm] Pulse Oximetry 95 95 94 Oxygen Delivery Me thod 04/17/25 18:03 04/17/25 18:15 04/17/25 18:17 Temperature Pulse Rate 65 68 67 Pulse Rate [Left R adial] Pulse Rate [Pulse Oximeter] Respiratory Rate 17 23 16 Blood Pressure 153/83 H Blood Pressure [Le ft Arm] Blood Pressure [Le ft Upper Arm] Pulse Oximetry 95 93 93 Oxygen Delivery Me thod 04/17/25 18:31 04/17/25 18:45 04/17/25 18:46 Temperature Pulse Rate 76 78 74 Pulse Rate [Left R adial] Pulse Rate [Pulse Oximeter] Respiratory Rate 18 9 L 16 Blood Pressure 155/81 H Blood Pressure [Le ft Arm] Blood Pressure [Le ft Upper Arm] Pulse Oximetry 95 94 93 Oxygen Delivery Me thod 04/17/25 18:47 04/17/25 19:00 04/17/25 19:01 Temperature Pulse Rate 73 66 72 Pulse Rate [Left R adial] Pulse Rate [Pulse Oximeter] Respiratory Rate 16 22 21 Blood Pressure 159/101 H Blood Pressure [Le ft Arm] Blood Pressure [Le ft Upper Arm] Pulse Oximetry 94 93 91 Oxygen Delivery Me thod 04/17/25 19:15 04/17/25 19:17 04/17/25 19:30 Temperature Pulse Rate 70 69 71 Pulse Rate [Left R adial] Pulse Rate [Pulse Oximeter] Respiratory Rate 21 18 25 H Blood Pressure 153/45 H Blood Pressure [Le ft Arm] Blood Pressure [Le ft Upper Arm] Pulse Oximetry 91 92 91 Oxygen Delivery Me thod 04/17/25 19:31 04/17/25 19:32 04/17/25 19:45 Temperature Pulse Rate 68 69 70 Pulse Rate [Left R adial] Pulse Rate [Pulse Oximeter] Respiratory Rate 17 21 Blood Pressure 169/83 H Blood Pressure [Le ft Arm] Blood Pressure [Le ft Upper Arm] Pulse Oximetry 92 91 91 Oxygen Delivery Me od 04/17/25 19:46 04/17/25 20:00 04/17/25 20:01 Temperature Pulse Rate 72 71 68 Pulse Rate [Left R adial] Pulse Rate [Pulse Oximeter] Respiratory Rate 14 16 Blood Pressure 159/98 H 140/116 H Blood Pressure [Le ft Arm] Blood Pressure [Le ft Upper Arm] Pulse Oximetry 92 94 95 Oxygen Delivery Me od 04/17/25 20:02 04/17/25 20:15 04/17/25 20:16 Temperature Pulse Rate 60 82 75 Pulse Rate [Left R adial] Pulse Rate [Pulse Oximeter] Respiratory Rate 12 14 11 L Blood Pressure 128/105 H Blood Pressure [Le ft Arm] Blood Pressure [Le ft Upper Arm] Pulse Oximetry 93 92 92 Oxygen Delivery Me od 04/17/25 20:17 04/17/25 20:55 04/17/25 20:56 Temperature 97.4 F L 97.4 F L Pulse Rate 73 Pulse Rate [Left R adial] 73 73 Pulse Rate [Pulse Oximeter] Respiratory Rate 13 16 16 Blood Pressure Blood Pressure [Le ft Arm] 138/86 138/86 Blood Pressure [Le ft Upper Arm] Pulse Oximetry 92 94 94 Oxygen Delivery Me od Room Air Room Air 04/17/25 21:06 04/17/25 21:49 04/17/25 22:08 Temperature Pulse Rate 69 Pulse Rate [Left R adial] 73 Pulse Rate [Pulse Oximeter] Respiratory Rate 16 Blood Pressure Blood Pressure [Le ft Arm] Blood Pressure [Le ft Upper Arm] Pulse Oximetry 94 Oxygen Delivery Me od Room Air 04/17/25 22:10 04/17/25 22:30 04/17/25 22:40 Temperature 97.8 F Pulse Rate Pulse Rate [Left R adial] 73 63 63 Pulse Rate [Pulse Oximeter] Respiratory Rate 16 16 Blood Pressure Blood Pressure [Le ft Arm] 178/86 H Blood Pressure [Le ft Upper Arm] Pulse Oximetry 93 [facility] 04/17/25 22:40 04/18/25 02:43 04/18/25 02:44 Temperature 98.2 F Pulse Rate Pulse Rate [Left R adial] 72 72 Pulse Rate [Pulse Oximeter] Respiratory Rate 16 16 Blood Pressure Blood Pressure [Le ft Arm] 133/63 Blood Pressure [Le ft Upper Arm] Pulse Oximetry 93 94 Oxygen Delivery [facility] Air Room Air 04/18/25 07:12 04/18/25 07:45 04/18/25 07:45 Temperature Pulse Rate 20 L Pulse Rate [Left R adial] 75 Pulse Rate [Pulse Oximeter] Respiratory Rate 16 Blood Pressure Blood Pressure [Le ft Arm] Blood Pressure [Le ft Upper Arm] Pulse Oximetry 91 Oxygen Delivery [facility] Room Air 04/18/25 07:45 04/18/25 07:45 04/18/25 11:56 Temperature 97.4 F L Pulse Rate Pulse Rate [Left R adial] 75 76 Pulse Rate [Pulse Oximeter] Respiratory Rate 16 16 Blood Pressure Blood Pressure [Le ft Arm] 129/73 Blood Pressure [Le ft Upper Arm] Pulse Oximetry 91 Oxygen Delivery [facility] Room Air 04/18/25 11:56 Temperature 97.6 F Pulse Rate Pulse Rate [Left R adial] 76 Pulse Rate [Pulse Oximeter] Respiratory Rate 16 Blood Pressure Blood Pressure [Le ft Arm] 164/92 H Blood Pressure [Le ft Upper Arm] Pulse Oximetry 96 Oxygen Delivery [facility] Room Air Labs Labs: Laboratory Results - last 24 hr 04/17/25 04/17/25 04/17/25 17:54 18:05 18:50 WBC 6.51 RBC 4.66 Hgb 14.2 Hct 43.2 MCV 93 MCH 31 MCHC 33 RDW Coeff of Lalo 13.1 Plt Count 97 L Neut % (Auto) 52.2 Lymph % (Auto) 29.8 [place] % (Auto) 11.5 H Eos % (Auto) 5.7 Baso % (Auto) 0.6 Neut # (Auto) 3.40 Lymph # (Auto) 1.94 [place] # (Auto) 0.70 Eos # (Auto) 0.37 Baso # (Auto) 0.04 Abs Immat Gran (auto) 0.01 Imm/Tot Granulo (auto) 0.2 INR 1.08 APTT 30 VBG pH 7.475 H VBG pCO2 30 L VBG pO2 62.8 H VBG HCO3 22 Sodium 134 L Potassium 4.5 Chloride 105 Carbon Dioxide 19 L Anion Gap 10 BUN 16 Creatinine 0.7 Estimated GFR 83 Glucose 94 Lactate 1.5 Calcium 9.1 Troponin I < 0.01 Urine Color Yellow Urine Appearance Clear Urine pH 7.0 Ur Specific [place] 1.015 Urine Protein Negative Urine Glucose (UA) Negative Urine Ketones Negative Urine Blood Negative Urine Nitrite Negative Urine Bilirubin Negative Urine Urobilinogen 1.0 Ur Leukocyte Esterase Negative Urine RBC 0-2 Urine WBC 0-2 Ur Squamous Epith Cells None Urine Bacteria Few A POC Creatinine 0.9 Imaging MR Brain: Radiologist's impression: TECHNIQUE: Multisequence multiplanar MRI of the brain prior to and following administration 16 cc Dotarem gadolinium based intravenous contrast. COMPARISON: Correlated with CT head dated earlier the same day 04/17/2025. FINDINGS: Punctate focus of hyperintensity on diffusion-weighted imaging within the right precentral gyrus (series 3, image 42), with intermediate signal on the ADC map and mild associated T2/FLAIR hyperintensity (series 6, image 32). No evidence of hemorrhagic conversion. Chronic infarct within the left frontal centrum semiovale with associated hemosiderin staining. Two punctate foci of susceptibility artifact within the adjacent left frontal (series 7, image 37) and temporal (series 7, image 27) lobes. Scattered foci of T2 prolongation elsewhere within the supratentorial white matter typical of chronic small vessel ischemic changes. Moderate diffuse parenchymal volume loss. The ventricles are proportional to the sulci. Flow voids in the larger intracranial arteries are preserved. Normal calvarial bone marrow signal intensity. Bilateral pseudophakia. The paranasal sinuses and mastoid air cells are predominantly clear. IMPRESSION: 1. Punctate focus of hyperintensity on diffusion-weighted imaging within the right precentral gyrus (series 3, image 42) suspicious for tiny subacute infarct. 2. No intracranial mass effect or focus of abnormal enhancement. 3. 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 4. Two punctate foci of adjacent susceptibility artifact consistent with sequela of prior microhemorrhage. 5. Moderate diffuse parenchymal volume loss and chronic small vessel ischemic changes
--- NOTE | 2025-04-18 14:28 | PC.SOCIAL ---
Discharge planning: SW received call from patient's elderly waiver case repairer Jaymie ([phone]) who wanted to introduce herself in case there were any things she would need to know around discharge planning and changes to where patient would be going at discharge. TWAN informed that we don't know plan for discharge at this time as patient is still waiting for tests. Jaymie explained that patient was at [facility], but there was a plan in place for patient to transition to the memory care until this week. SW to update if patient will need assistance with discharging to a different facility vs back to [facility]. TWAN spoke with Ellie at [facility] who states that the plan for patient was to transition to memory care on 04/19. Ellie states they are very familiar with patient and would like her to come back. TWAN asked that Ellie fax HCD and POLST for patient as we don't have this on file. Ellie faxed these to SW. TWAN placed copies in patient's chart and also placed them into the medical records file so they can be scanned into patient's chart. TWAN called patient's daughter who is currently on her way to the hospital from [place]. Daughter states that she plans to be in [place] until Wednesday. Daughter explains that she hasn't received any updates yet and would appreciate one from the medical team when there are results. SW notified provider. Daughter reports that she is concerned about patient's transition to memory care as patient is active and feels she may struggle with the transition due to this, but also may feels patient may be triggered due to the memory's she has of her 's transition into memory care. Daughter states that she plans to help with the move and hopes that this will help patient adjust better. Daughter had no other questions or concerns at this time. SW to continue to assist patient nd family with discharge planning.
--- NOTE | 2025-04-18 18:34 | PC.NURSE ---
end of shift. pt has been very pleasant. she has dementia. SL is patent. she is eating, drinking and voiding. no pain. she is up wit 1 assist walker and GB. alarms are on. she does not use that call light all the time. she does have facial drop on and off depending on the side she is laying. she has her dentures here
[2025-04-18] MEDS: METOPROLOL TARTRATE 25 MG TABLET 12.5 MG PO (20:34)
[2025-04-18] MEDS: ATORVASTATIN CALCIUM 40 MG TABLET PO (20:34)
[2025-04-19 03:00] VITALS: BP 151/97; PULSE 76; PULSE 77; RESP 14; TEMP 36.8; O2SAT 91
--- NOTE | 2025-04-19 05:48 | PC.NURSE ---
Shift note: Patient's condition is stable. No neurologic deterioration noted except mild right sided facial droop. Ambulated SBA with walker to BR but refused GB. BP has been elevated. Denied dizziness, SOB, headache or weakness. Pt has difficulty remembering to use the call light. Self-transferred several times tonight to go to the BR. Pt had adequate sleep.
[2025-04-19 07:00] VITALS: PULSE 68; RESP 18; O2SAT 94
[2025-04-19 08:30] VITALS: BP 127/82; PULSE 81; RESP 18; TEMP 36.5; O2SAT 94
[2025-04-19 08:45] VITALS: PULSE 81; RESP 18
[2025-04-19] MEDS: METOPROLOL TARTRATE 25 MG TABLET 12.5 MG PO (09:01)
[2025-04-19] MEDS: OMEPRAZOLE 20 MG CAPSULE DR PO (09:01)
[2025-04-19] MEDS: APIXABAN 5 MG TABLET PO (09:01)
[2025-04-19] MEDS: SENNOSIDES 1 TAB TABLET PO (09:01)
[2025-04-19] MEDS: SODIUM CHLORIDE 0.9 % (FLUSH) 10 ML SYRINGE 5 ML IVF (09:01)
[2025-04-19 11:45] VITALS: BP 150/76; PULSE 60; RESP 18; TEMP 36.7; O2SAT 92
--- NOTE | 2025-04-19 12:38 | PC.SOCIAL ---
Discharge planning: Called and spoke with pt's dtr who confirms pt will be discharged to memory care at [facility] today. Dtr requested transport by van from facility. Spoke with Susan nurse, at [facility], who confirmed pt will be moving in today to [facility] memory care. Van for discharge has been arranged for 12:30 today. Discharge orders sent to [facility] and facility has confirmed receipt.
--- NOTE | 2025-04-19 13:59 | PM.DS1 ---
DS: Providers Provider Date Seen: 04/19/25 Date of admission: 04/18/25 16:11 Primary care physician: Mando Blount MD Admitting Clinician: Kasey Balderrama MD Attending Physician on discharge: Yosi Carl MD Date of Discharge: 04/19/25 DS: Diagnosis Discharge Diagnosis (1) Paroxysmal atrial fibrillation: Status: Acute Problem details: Anticoagulate with Eliquis and initiate cautious rate control with metoprolol given current stroke with permissive hypertension (2) Stroke: Status: Acute Problem details: Small stroke in right precentral gyrus. Clinically appears to be mostly resolved. Anticoagulation and statin. (3) Dementia: Status: Chronic Problem details: Chronic. Severity unknown - 12/19/2024 [place] at 10 out of 30 - currently living in assisted living facility, not memory care yet DS: Summary Hospital Course Hospital Course: Luz Marina Harrison is a 89 year old female with dementia who lives in an assisted living facility and was with a caregiver there when they noticed that she had sudden onset of difficulty speaking and walking and right-sided facial droop at 4:50 p.m.. EMS was called and her symptoms started to resolve when she went into the CT scanner and are now completely resolved. She has no history of atrial fibrillation that we are aware of that she is aware of, but there was an irregular tachyarrhythmia seen in the emergency department that is suspected to be AFib. She also had a similar irregular rhythm here upon going to the floor and, although we were unable to capture it on EKG, it appeared to be AFib on the monitor. 04/18/2025: Patient has moderately severe dementia with a [place] of 10/30 in December. She is scheduled to go to a memory care facility tomorrow. She is unable to give any significant history at this time. She tells me she has no concerns. With her last hospital stay she did have some delirium. She has been in an out of atrial fibrillation during this hospital stay currently in sinus rhythm 04/19/2025: Patient reports no concerns today. She is not oriented to her circumstances. Nursing staff note no complications. Appears to be in sinus rhythm overnight Status at Discharge Overall status at discharge: patient is progressing back to baseline Time Spent with Patient Time attestation: Total time spent providing and/or coordinating discharge services: 35 minutes Exam Narrative: Exam Narrative: She is alert and pleasant. She is eating breakfast. She has very slight right facial did weakness compared to left. Seems to swallow without difficulty. Breathing is unlabored. Cardiovascular: S1, S2, regular rate and rhythm Upper extremities and lower extremity strength is symmetric. [id number] is normal. Const: Vital Signs, click to edit/add: Vital Signs - 24 hr 04/18/25 15:15 04/18/25 15:30 04/18/25 15:30 Temperature Pulse Rate 77 Pulse Rate [Left R adial] 76 Respiratory Rate 16 Blood Pressure [Le ft Arm] Pulse Oximetry 96 Oxygen Delivery Me thod Room Air 04/18/25 15:32 04/18/25 15:38 04/18/25 15:43 Temperature 97.1 F L Pulse Rate Pulse Rate [Left R adial] 76 52 L 70 Respiratory Rate 16 16 16 Blood Pressure [Le ft Arm] 143/94 H 108/71 Pulse Oximetry 91 94 Oxygen Delivery Me thod Room Air Room Air 04/18/25 19:00 04/18/25 19:00 04/18/25 22:14 Temperature 97.6 F Pulse Rate Pulse Rate [Left R adial] 81 81 77 Respiratory Rate 14 Blood Pressure [Le ft Arm] 143/68 H Pulse Oximetry 90 Oxygen Delivery Me thod Room Air 04/18/25 22:14 04/18/25 22:14 04/18/25 22:14 Temperature 98 F Pulse Rate Pulse Rate [Left R adial] 77 77 Respiratory Rate 14 14 14 Blood Pressure [Le ft Arm] 142/70 H Pulse Oximetry 91 91 Oxygen Delivery Me thod Room Air Room Air 04/18/25 23:00 04/19/25 03:00 04/19/25 03:00 Temperature 98.2 F Pulse Rate 70 Pulse Rate [Left R adial] 77 76 Respiratory Rate 14 Blood Pressure [Le ft Arm] 151/97 H Pulse Oximetry 91 Oxygen Delivery Me thod Room Air 04/19/25 07:00 04/19/25 07:00 04/19/25 08:30 Temperature 97.7 F Pulse Rate 68 Pulse Rate [Left R adial] 81 Respiratory Rate 18 18 Blood Pressure [Le ft Arm] 127/82 Pulse Oximetry 94 94 Oxygen Delivery Me thod Room Air Room Air 04/19/25 08:45 04/19/25 08:45 04/19/25 11:45 Temperature 98.0 F Pulse Rate Pulse Rate [Left R adial] 81 81 60 Respiratory Rate 18 18 Blood Pressure [Le ft Arm] 150/76 H Pulse Oximetry 92 Oxygen Delivery Me thod Room Air Documenting provider has reviewed patient's vital signs: yes DS: Data Imaging MR Brain: Radiologist's impression: INDICATION: Transient ischemic attack. TECHNIQUE: Multisequence multiplanar MRI of the brain prior to and following administration 16 cc Dotarem gadolinium based intravenous contrast. COMPARISON: Correlated with CT head dated earlier the same day 04/17/2025. FINDINGS: Punctate focus of hyperintensity on diffusion-weighted imaging within the right precentral gyrus (series 3, image 42), with intermediate signal on the ADC map and mild associated T2/FLAIR hyperintensity (series 6, image 32). No evidence of hemorrhagic conversion. Chronic infarct within the left frontal centrum semiovale with associated hemosiderin staining. Two punctate foci of susceptibility artifact within the adjacent left frontal (series 7, image 37) and temporal (series 7, image 27) lobes. Scattered foci of T2 prolongation elsewhere within the supratentorial white matter typical of chronic small vessel ischemic changes. Moderate diffuse parenchymal volume loss. The ventricles are proportional to the sulci. Flow voids in the larger intracranial arteries are preserved. Normal calvarial bone marrow signal intensity. Bilateral pseudophakia. The paranasal sinuses and mastoid air cells are predominantly clear. IMPRESSION: 1. Punctate focus of hyperintensity on diffusion-weighted imaging within the right precentral gyrus (series 3, image 42) suspicious for tiny subacute infarct. 2. No intracranial mass effect or focus of abnormal enhancement. 3. 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 4. Two punctate foci of adjacent susceptibility artifact consistent with sequela of prior microhemorrhage. 5. Moderate diffuse parenchymal volume loss and chronic small vessel ischemic changes. CTA head: Radiologist's impression: INDICATION: Acute stroke. TECHNIQUE: CTA head with contrast bolus tracking, 3D angiographic rendering using maximum intensity projection (MIP) and images permanently archived. FINDINGS: There is extensive scattered intracranial atherosclerotic disease. There is normal opacification of the intracranial vasculature. There is no large vessel occlusion. No aneurysm is identified. IMPRESSION: Extensive scattered intracranial atherosclerotic disease. CTA neck: Radiologist's impression: INDICATION: Acute stroke. TECHNIQUE: CTA neck with contrast bolus tracking, 3D angiographic rendering using maximum intensity projection (MIP) and images permanently archived. FINDINGS: There is carotid atherosclerosis bilaterally. There is no significant carotid artery stenosis or dissection. There is no significant vertebral artery stenosis or dissection. The soft tissues of the neck are within normal limits. Degenerative changes are noted in the cervical spine. Emphysema is present in the visualized lungs. IMPRESSION: No significant carotid or vertebral artery stenosis or dissection. Discharge Plan Discharge Disposition: [facility] Date of Admission: 04/18/25 16:11 Attending Provider on Discharge: Hesham Carl Primary Care Provider: Mando Blount Anticipated Discharge Date/Time: 04/19/25 10:00 Discharge Medications: New atorvastatin 40 mg Tablet 40 mg PO HS Qty: 30 0RF Eliquis 5 mg Tablet 5 mg PO BID Qty: 60 0RF metoprolol succinate 25 mg capsule,sprinkle,ER 24hr 25 mg PO DAILY Qty: 30 0RF Continued sennosides [senna] 8.6 mg tablet 8.6 mg PO DAILY Patient Comments: [NO ORIGINAL SIG] nystatin 100,000 unit/gram cream 1 applic topical DAILY Ocuvite with Lutein 300 mcg-200 mg-27 mg-2 mg tablet 1 tab PO DAILY carboxymethylcellulose sodium [Refresh Celluvisc] 1 % dropperette,gel 1 drp ophthalmic (eye) Q8H PRN Patient Comments: [NO ORIGINAL SIG] omeprazole 20 mg capsule,delayed release(DR/EC) 20 mg PO DAILY acetaminophen [Acetaminophen Extra Strength] 500 mg tablet 1,000 mg PO BID PRN Patient Comments: Take 2 tablet by mouth twice a day as needed for pain melatonin 3 mg capsule 3 mg PO HS PRN Held amlodipine 2.5 mg tablet 2.5 mg PO DAILY Qty: 30 0RF Hold Instructions: Resume on 04/23/25. Resume on April 23 if blood pressure greater than 130/80 lisinopril 5 mg tablet 5 mg PO DAILY Hold Instructions: Resume on 04/27/25. Resume on April 27 if blood pressure greater than 130/80 Patient Comments: TAKE ONE TABLET BY MOUTH EVERY MORNING Discontinued sulfamethoxazole-trimethoprim [Bactrim] 400-80 mg tablet 1 tab PO BID Qty: 8 0RF Discharge Orders: Discharge Order (Routine); Ordered 04/19/25 Ordered By: Hesham Carl Additional Instructions: Resume blood pressure medicines over the next 2 weeks to a target blood pressure of less than 130/80. Activity Level: Up with assist and Use Walker Discharge Diet: Regular Follow Up Appointments: Mando Blount MD [Primary Care Provider, Family Practice] Forms: [employer] Info Instructions Admit to: Assisted Living Discharge Potential: Poor Length of Stay: >90 days Can use facility standing orders?: Yes Code Status: DNR
--- NOTE | 2025-04-19 14:21 | PC.NURSE ---
Discharge: Patient pleasant and cooperative, A&O. VSS, afebrile. SpO2 maintained above 90% on RA. Iv removed with tip intact. DC to [facility].
== END 2025-04-19 12:33 | DRG 45 ==
LOC: ED 19:58 → MEDSURG 20:37
PROVIDERS: Admitting Provider Family Medicine; Emergency Provider Emergency Medicine; PCP Family Medicine; Visit Provider Family Medicine
DX: I63.233 Cerebral infarction due to unspecified occlusion or stenosis of bilateral carotid arteries (principal); I48.0 Paroxysmal atrial fibrillation; R29.810 Facial weakness; F03.C0 Unspecified dementia, severe, without behavioral disturbance, psychotic disturbance, mood disturbance, and anxiety; I48.92 Unspecified atrial flutter; I10 Essential (primary) hypertension; Z87.891 Personal history of nicotine dependence
CPT/HCPCS: 36415; 70450; 70496; 70498; 70553; 71045; 80048; 81001; 82565; 82803; 83605; 84484; 85025; 85610; 85730; 87086; 93005; 93306; 97112; 97116; 97162; 97165; 97530; 97535; 99283; 99285; 99291; A9270; A9575; G0378; Q9967

== ENCOUNTER 2025-06-28 02:54 | Outpatient (CLI) | payer BC, SELFPAY | END 2025-06-28 02:55 | disposition home or self-care (01) | LOC: AMB 07-02 10:02 | PROVIDERS: PCP Family Medicine; Visit Provider Family Medicine | DX: R41.82 Altered mental status, unspecified (principal) | CPT/HCPCS: A0425; A0429 ==

== ENCOUNTER 2025-06-28 03:13 | Observation (INO) | payer BC, SELFPAY ==
[2025-06-28] VITALS (17 sets, daily range): BP systolic 146–179; BP diastolic 77–100; PULSE 56–71; RESP 10–31; TEMP 36.3–36.7; O2SAT 93–97; BMI 26.5
--- NOTE | 2025-06-28 03:21 | CRLHL7_ITS ---
For Patients: As a result of the Century Cures Act, medical imaging exams and procedure reports are released immediately into your electronic medical record. You may view this report before your referring provider. If you have questions, please contact your health care provider. Indication: Altered mental status Technique: Noncontrast CT through the head with multiplanar reformats Comparison: MR brain performed 04/18/2025 Findings: Brain: No acute hemorrhage. No acute infarct. No significant mass effect or midline shift. No gross evidence of a mass lesion or cerebral edema. Severe chronic sinus disease and few scattered chronic infarcts noted. Ventricles: No acute abnormality appreciated. Orbits, sinuses, mastoids: No acute abnormality appreciated. Calvarium and soft tissues: No acute abnormality appreciated. Impression: No acute intracranial abnormality appreciated. Please note that all CT scans at this facility use dose modulation, iterative reconstruction, and/or weight-based dosing when appropriate to reduce radiation dose to as low as reasonably achievable. Dictated by Nish Lorenz MD @ 06/28/2025 3:33:24 AM (Electronically Signed)
--- NOTE | 2025-06-28 04:24 | ED.NEUROSD ---
HPI - Neuro Symptoms/Deficit General Date Seen: 06/28/25 Chief Complaint: Neuro Symptoms/Altered Deficit Stated Complaint: facial droop Time Seen by Provider: 06/28/25 03:31 Source: patient and EMS Mode of arrival: EMS Limitations: altered mental status History of Present Illness HPI Narrative: Patient is an 89-year-old female resident of a local memory care unit. On routine bed check at about 2:00 a.m. she was noted to have a right facial droop, garbled speech, inability to walk with her walker. EMS was called and she is transported in and a stroke code was initiated. Patient has significant dementia and cannot provide any meaningful history. The intermediate did not bother to send over any records either. In reviewing her chart she had almost identical symptoms in April and was admitted with a couple of small areas of stroke. These are noted on MRI. CT angiogram of her neck was normal. CT angiogram of her brain showed significant atherosclerotic areas. At that time she was found in atrial fibrillation and started on atorvastatin, metoprolol, Eliquis. The patient CT scan was normal. Following that I was able to examine her and basically her neurologic deficits had all resolved by this point. Related Data Home Medications ?Medication ?Instructions ?Recorded ?Confirmed acetaminophen 500 mg tablet 1,000 mg PO BID PRN 11/14/22 06/28/25 (Acetaminophen Extra Strength) lisinopril 5 mg tablet 5 mg PO DAILY 11/14/22 06/28/25 Held on 04/19/25. Instructions: Resume on 04/27/25. Resume on April 27 if blood pressure greater than 130/80 melatonin 3 mg capsule 3 mg PO HS PRN 11/14/22 06/28/25 carboxymethylcellulose sodium 1 % 1 drp ophthalmic (eye) Q8H PRN 12/17/24 06/28/25 eye gel in a dropperette (Refresh Celluvisc) nystatin 100,000 unit/gram topical 1 applic topical DAILY 12/17/24 06/28/25 cream omeprazole 20 mg capsule,delayed 20 mg PO DAILY 12/17/24 06/28/25 release sennosides 8.6 mg tablet (senna) 8.6 mg PO DAILY 12/17/24 06/28/25 vit A 300 mcg-C 200 mg-E 27 1 tab PO DAILY 12/17/24 06/28/25 mg-lutein 2 mg and minerals tablet (Ocuvite with Lutein) calcium carbonate (Antacid 200 mg PO 3XD PRN heartburn 06/28/25 06/28/25 (calcium carbonate)) Previous Rx's ?Medication ?Instructions ?Recorded amlodipine 2.5 mg tablet 2.5 mg PO DAILY #30 tabs 12/19/24 Held on 04/19/25. Instructions: Resume on 04/23/25. Resume on April 23 if blood pressure greater than 130/80 apixaban 5 mg tablet (Eliquis) 5 mg PO BID #60 tabs 04/19/25 atorvastatin 40 mg tablet 40 mg PO HS #30 tabs 04/19/25 metoprolol succinate 25 mg capsule 25 mg PO DAILY #30 ea 04/19/25 sprinkle, ext. release 24 hr Allergies Allergy/AdvReac Type Severity Reaction Status Date / Time No Known Drug Allergies Allergy Verified 06/28/25 04:41 Review of Systems Narrative: Review of systems is outlined above otherwise noted to be negative. [facility] Medical History (Updated 06/28/25 @ 04:25 by Carlos Greer MD) Hypertension ?I10 - Essential (primary) hypertension (ICD-10) Stroke ?I63.9 - Cerebral infarction, unspecified (ICD-10) Paroxysmal atrial fibrillation ?I48.0 - Paroxysmal atrial fibrillation (ICD-10) Dementia ?F03.90 - Unspecified dementia, unspecified severity, without behavioral disturbance, psychotic disturbance, mood disturbance, and anxiety (ICD-10) UTI (urinary tract infection) ?N39.0 - Urinary tract infection, site not specified (ICD-10) Social History (Updated 04/17/25 @ 23:05 by Kasey Balderrama MD) Narrative: Patient lives in assisted living, not memory care, likely lives at the [facility]. She is a former smoker, hasn't smoked for many years. She does not drink alcohol. What is your current living situation?: I presently have a place to live Problems where you live: unable to answer Problems where you live details: NA In the past 12 months, utilities in danger of being shut off: no In past 12 months, lack of transportation kept you from medical appts, meetings, work, or getting things needed for daily living: unable to answer In the past 12 mos, have been you worried that your food would run out before you had money to buy more?: unable to answer In the past 12 mos, the food you bought just didn't last and you didn't have money to buy more?: unable to answer Highest level of school completed/degree received: high school graduate Smoking Status: Former smoker Do you use any of these nicotine containing products: None Second hand tobacco smoke exposure: No How often do you have a drink containing alcohol: never AUDIT-C Alcohol total score: 0 Non-prescribed substance use: denies use How often does anyone, including family, friends and others, physically hurt you: never How often does anyone, including family, friends and others, insult or talk down to you: never How often does anyone, including family, friends and others, threaten you with harm: never How often does anyone, including family, friends and others, scream or curse at you: never service: No Exam Narrative: Exam Narrative: Vitals noted. HEENT: Conjunctiva clear. Tympanic membranes are pearly white bilaterally. Posterior pharynx is clear without erythema or exudate. Neck is supple without adenopathy, thyromegaly, carotid bruit. Lungs: Clear to auscultation in all tony. No wheezes, rales, rhonchi. Heart: Regular rate and rhythm without murmur. She is not in atrial fibrillation. Abdomen: Soft and nontender. No guarding, rigidity, rebound. Bowel sounds are normal. No palpable masses. Extremities: No cyanosis or edema. Good distal pulses. Skin: No abnormalities noted of the exposed skin. Neurologic: Awake, alert, and somewhat frightened. She has normal motor and sensory exams in all four extremities. Her speech is understandable but may be just a bit off. She does not have any significant facial droop. Her tongue protrudes in the midline. Normal shoulder shrug. Normal extraocular movements. No pronator drift. Const: Vital Signs, click to edit/add: Vital Signs - 24 hr 06/28/25 03:17 06/28/25 03:41 06/28/25 03:45 Temperature 98.0 F Pulse Rate 58 L 61 Pulse Rate [Right Pulse Oximeter] Respiratory Rate 16 21 Blood Pressure Blood Pressure [Ri ght Upper Arm] Pulse Oximetry 94 93 Oxygen Delivery Me thod 06/28/25 03:52 06/28/25 04:00 06/28/25 04:08 Temperature Pulse Rate 63 59 L Pulse Rate [Right Pulse Oximeter] 64 Respiratory Rate 18 20 19 Blood Pressure 165/86 H Blood Pressure [Ri ght Upper Arm] 163/100 H Pulse Oximetry 94 94 95 Oxygen Delivery Me thod Room Air 06/28/25 04:12 06/28/25 04:13 06/28/25 04:15 Temperature Pulse Rate 62 62 60 Pulse Rate [Right Pulse Oximeter] Respiratory Rate 21 21 15 Blood Pressure 161/77 H Blood Pressure [Ri ght Upper Arm] Pulse Oximetry 93 93 94 Oxygen Delivery Me thod 06/28/25 04:21 06/28/25 04:30 06/28/25 04:32 Temperature Pulse Rate 61 70 71 Pulse Rate [Right Pulse Oximeter] Respiratory Rate 23 31 H 10 L Blood Pressure 171/82 H 179/99 H Blood Pressure [Ri ght Upper Arm] Pulse Oximetry 94 95 97 Oxygen Delivery Me thod Course Course ED Course: Stroke code was called upon her arrival. She was sent directly for CT of her brain without contrast. Patient seen and examined. Her symptoms of garbled speech and right facial droop have resolved. I did call and speak with the stroke neurologist Dr. Vasquez. She agrees that further imaging is not likely to affect her treatment. She is in agreement that we should watch the patient overnight. Reevaluation(s) Reevaluation #1: EKG shows normal sinus rhythm with a left bundle branch block and a rate of 60. NIH stroke scale score is four. CBC and BMP are normal. Consultations Consultation #1: Stroke Neurology Vital Signs Vital signs: Initial Vital Signs Temperature 98.0 F 06/28/25 03:17 Temperature Source Temporal Artery Scan 06/28/25 03:17 Vital Signs Temperature 98.0 F 06/28/25 03:17 Temperature 98.0 F 06/28/25 03:17 Pulse Rate 71 06/28/25 04:32 Respiratory Rate 10 L 06/28/25 04:32 Blood Pressure 179/99 H 06/28/25 04:32 Pulse Oximetry 97 06/28/25 04:32 Oxygen Delivery Method Room Air 06/28/25 03:52 MDM - Neuro Symptoms/Deficit MDM Narrative Medical decision making narrative: I opted to admit the patient for observation and close neurologic follow-up. I discussed the case with Dr. Vasquez from Neurology who agrees with the plan above. Lab Data Labs: Lab Results 06/28/25 Range/Units 03:45 WBC 6.46 (4.50-11.00) K/uL RBC 4.59 (4.00-5.20) m/uL Hgb 14.0 (12.0-16.0) gm/dL Hct 42.7 (33.0-51.0) % MCV 93 (80-100) fL MCH 31 (26-34) pg MCHC 33 (32-36) gm/dL RDW Coeff of Lalo 12.9 (11.5-15.5) % Plt Count 137 L (140-440) K/uL Neut % (Auto) 48.9 (42.0-72.0) % Lymph % (Auto) 31.3 (20-44) % [place] % (Auto) 12.2 H (0.0-11.0) % Eos % (Auto) 7.1 H (0.0-7.0) % Baso % (Auto) 0.5 (0.0-3.0) % Neut # (Auto) 3.16 (1.7-7.0) K/uL Lymph # (Auto) 2.02 (0.90-2.90) K/uL [place] # (Auto) 0.80 (0.00-0.90) K/UL Eos # (Auto) 0.50 (0.00-0.50) K/uL Baso # (Auto) 0.03 (0.00-0.30) K/uL Abs Immat Gran (auto) 0.00 (0.00-0.30) K/uL Imm/Tot Granulo (auto) 0.0 % Sodium 137 (135-149) mmol/L Potassium 4.0 (3.6-5.1) mmol/L Chloride 103 (96-114) mmol/L Carbon Dioxide 26 (20-32) mmol/L Anion Gap 8 (7-15) mEq/L BUN 10 (7-30) mg/dL Creatinine 0.7 (0.5-1.5) mg/dL Estimated Creat Clear 30.76 Estimated GFR 83 ml/min Glucose 100 (60-115) mg/dL Calcium 9.5 (8.4-10.6) mg/dL Discharge Plan Discharge Clinical Impression: TIA (transient ischemic attack) Patient Disposition: Admitted As Observation Discharge Location: [facility] Condition: Improved
[2025-06-28 04:30] LABS: Hematocrit 42.7 % (33.0-51.0); Hemoglobin* 14.0 gm/dL (12.0-16.0); Immature Granulocytes Abs Auto 0.00 K/uL (0.00-0.30); Immature Granulocytes Pct Auto 0.0 %; Lymphocytes Absolute Auto 2.02 K/uL (0.90-2.90); Mean Corpuscular HGB Conc 33 gm/dL (32-36); Mean Corpuscular Hemoglobin 31 pg (26-34); Mean Corpuscular Volume 93 fL (80-100); RDW Coefficient of Variation % 12.9 % (11.5-15.5); Red Blood Count 4.59 m/uL (4.00-5.20); White Blood Count* 6.46 K/uL (4.50-11.00)
[2025-06-28 04:40] LABS: Slide Review Reflex No
--- NOTE | 2025-06-28 04:40 | ED.NURSE ---
called [facility] and let them know that pt would be staying overnight at [facility] for observation. [facility] in agreement with plan. [facility] faxed all paperwork including meds, personal contacts and POLST. Med surg given a copy of that paperwork. Pt adament about staying in her own pajamas and wants her stuffed animal puppy dog with her at all times. Pt and puppy dog given warm blankets for comfort.
--- NOTE | 2025-06-28 04:46 | W.PM.TELEH&P ---
Telehealth- H&P: HPI History of Present Illness Date Seen: 06/28/25 Chief complaint: facial droop Narrative: Luz Marina Harrison is seen as an Interactive Telehealth visit. Luz Marina Harrison is a 89 year old female hospitalized 2 months ago with TIa presents with anotehr episode of R facial droop and garbled speech. Jordan was found at her memory unit this evening with these symptoms. EMS was contacted and also witenssed these findings. Once she reached the ED, her symptoms had resolved. Neurology was contacted adn recommended patient be monitored. Since patient recently underwent a TIA work up and was found to haave atrial fibrillation. She was given eliquis and metoprolol and discharged to a memory unit. Patient denies any chest pain, heart racing, dizziness, numbness/tingling or weakness of an extremity. She denied abdominal pain. Review of Systems Status of ROS: Reports: 6 or more systems reviewed and unremarkable except as noted in History and below [facility] Medical History (Updated 06/28/25 @ 04:25 by Carlos Greer MD) Hypertension ?I10 - Essential (primary) hypertension (ICD-10) Stroke ?I63.9 - Cerebral infarction, unspecified (ICD-10) Paroxysmal atrial fibrillation ?I48.0 - Paroxysmal atrial fibrillation (ICD-10) Dementia ?F03.90 - Unspecified dementia, unspecified severity, without behavioral disturbance, psychotic disturbance, mood disturbance, and anxiety (ICD-10) UTI (urinary tract infection) ?N39.0 - Urinary tract infection, site not specified (ICD-10) Social History (Updated 04/17/25 @ 23:05 by Kasey Balderrama MD) Narrative: Patient lives in assisted living, not memory care, likely lives at the [facility]. She is a former smoker, hasn't smoked for many years. She does not drink alcohol. What is your current living situation?: I presently have a place to live Problems where you live: unable to answer Problems where you live details: NA In the past 12 months, utilities in danger of being shut off: no In past 12 months, lack of transportation kept you from medical appts, meetings, work, or getting things needed for daily living: unable to answer In the past 12 mos, have been you worried that your food would run out before you had money to buy more?: unable to answer In the past 12 mos, the food you bought just didn't last and you didn't have money to buy more?: unable to answer Highest level of school completed/degree received: high school graduate Smoking Status: Former smoker Do you use any of these nicotine containing products: None Second hand tobacco smoke exposure: No How often do you have a drink containing alcohol: never AUDIT-C Alcohol total score: 0 Non-prescribed substance use: denies use How often does anyone, including family, friends and others, physically hurt you: never How often does anyone, including family, friends and others, insult or talk down to you: never How often does anyone, including family, friends and others, threaten you with harm: never How often does anyone, including family, friends and others, scream or curse at you: never service: No Meds Home Medications and Allergies Home Medications ?Medication ?Instructions ?Recorded ?Confirmed ?Type acetaminophen 500 mg tablet 1,000 mg PO BID PRN 11/14/22 06/28/25 History (Acetaminophen Extra Strength) lisinopril 5 mg tablet 5 mg PO DAILY 11/14/22 06/28/25 History Held on 04/19/25. Instructions: Resume on 04/27/25. Resume on April 27 if blood pressure greater than 130/80 melatonin 3 mg capsule 3 mg PO HS PRN 11/14/22 06/28/25 History carboxymethylcellulose sodium 1 % 1 drp ophthalmic (eye) Q8H PRN 12/17/24 06/28/25 History eye gel in a dropperette (Refresh Celluvisc) nystatin 100,000 unit/gram topical 1 applic topical DAILY 12/17/24 06/28/25 History cream omeprazole 20 mg capsule,delayed 20 mg PO DAILY 12/17/24 06/28/25 History release sennosides 8.6 mg tablet (senna) 8.6 mg PO DAILY 12/17/24 06/28/25 History vit A 300 mcg-C 200 mg-E 27 1 tab PO DAILY 12/17/24 06/28/25 History mg-lutein 2 mg and minerals tablet (Ocuvite with Lutein) amlodipine 2.5 mg tablet 2.5 mg PO DAILY #30 tabs 12/19/24 06/28/25 Rx Held on 04/19/25. Instructions: Resume on 04/23/25. Resume on April 23 if blood pressure greater than 130/80 apixaban 5 mg tablet (Eliquis) 5 mg PO BID #60 tabs 04/19/25 06/28/25 Rx atorvastatin 40 mg tablet 40 mg PO HS #30 tabs 04/19/25 06/28/25 Rx metoprolol succinate 25 mg capsule 25 mg PO DAILY #30 ea 04/19/25 06/28/25 Rx sprinkle, ext. release 24 hr calcium carbonate (Antacid 200 mg PO 3XD PRN heartburn 06/28/25 06/28/25 History (calcium carbonate)) Allergies Allergy/AdvReac Type Severity Reaction Status Date / Time No Known Drug Allergies Allergy Verified 06/28/25 04:41 Exam Narrative Exam Narrative: Physical Exam GENERAL: ?vital signs reviewed, well developed and nourished, in no distress; awake alert oriented to self, does not knwo why she is here HEENT: pupils are equal round and reactive to light, extraocular movements are grossly within normal limits and oral mucosa is moist. NECK: Supple without lymphadenopathy or thyromegaly according to nursing staff examination observation HEART: Regular rate and rhythm without any rubs, murmurs, or gallops. LUNGS: Clear to auscultation bilaterally with good air movement throughout ABDOMEN: Observation from nurse assisted exam, abdomen appears soft, +RUQ tenderness with palpation, and nondistended with Positive bowel sounds noted. EXTREMITIES: Strength and sensation is observed to be grossly within normal limits in the upper and lower extremities.? No focal strength deficit is observed. SKIN:? Observed warm and dry with color normal Const Vital Signs, click to edit/add: Vital Signs - 24 hr 06/28/25 03:17 06/28/25 03:41 06/28/25 03:45 Temperature 98.0 F Pulse Rate 58 L 61 Pulse Rate [Right Pulse Oximeter] Respiratory Rate 16 21 Blood Pressure Blood Pressure [Right Upper Arm] Pulse Oximetry 94 93 Oxygen Delivery Method 06/28/25 03:52 06/28/25 04:00 06/28/25 04:08 Temperature Pulse Rate 63 59 L Pulse Rate [Right Pulse Oximeter] 64 Respiratory Rate 18 20 19 Blood Pressure 165/86 H Blood Pressure [Right Upper Arm] 163/100 H Pulse Oximetry 94 94 95 Oxygen Delivery Method Room Air 06/28/25 04:12 Temperature Pulse Rate 62 Pulse Rate [Right Pulse Oximeter] Respiratory Rate 21 Blood Pressure 161/77 H Blood Pressure [Right Upper Arm] Pulse Oximetry 93 Oxygen Delivery Method Hospitalist - H&P: Result Labs Labs: Short CBC 06/28/25 Range/Units 03:45 WBC 6.46 (4.50-11.00) K/uL Hgb 14.0 (12.0-16.0) gm/dL Hct 42.7 (33.0-51.0) % Plt Count 137 L (140-440) K/uL Normal lytes and BUN/Creat ECG Attestation: I personally reviewed and interpreted this ECG as follows: ECG interpretation date: 06/28/25 ECG interpretation time: 05:29 Interpretation: LBBB, NSR no ST changes Imaging CT scan - head: Attestation: I have reviewed the pertinent imaging results. Radiologist's impression: CTOH Brain: No acute hemorrhage. No acute infarct. No significant mass effect or midline shift. No gross evidence of a mass lesion or cerebral edema. Severe chronic sinus disease and few scattered chronic infarcts noted. Ventricles: No acute abnormality appreciated. Orbits, sinuses, mastoids: No acute abnormality appreciated. Calvarium and soft tissues: No acute abnormality appreciated. Impression: No acute intracranial abnormality appreciated. Please note that all CT scans at this facility use dose modulation, iterative reconstruction, and/or weight-based dosing when appropriate to reduce radiation dose to as low as reasonably achievable. Assessment and Plan Assessment and plan (1) TIA (transient ischemic attack): Status: Acute (2) Hypertension: Problem comment: Permissive hypertension during this hospital stay. Initiate metoprolol for AFib rate control Status: Acute (3) Paroxysmal atrial fibrillation: Problem comment: Anticoagulate with Eliquis and initiate cautious rate control with metoprolol given current stroke with permissive hypertension Status: Acute (4) Dementia: Problem comment: Chronic. Severity unknown - 12/19/2024 Mcguffey at 10 out of 30 - currently living in assisted living facility, not memory care yet Status: Chronic Plan 89y/o F h/o paroxsymal atrial fibrillation presents with right facial droop and garbled speech which has now resolved Per ED, neurology does not think a new work up with MRI, CTA, and echocardiogram is needed. --monitor patient on telemetry overnight --PT/OT to see --control blood pressure Hypertension: --restart home medications (lisinopril/amlodipine) Atrial fibrillation: wnl and NSR --continue eliquis and metoprolol Abdominal pain will monitor. if worsens will obtain imaging headache: reported at the end of assessment no unusual findings on imaging --administer acetaminophen DNR continue eliquis Telehealth: Statement Statement Telehealth Visit: Today's History and Physical is provided via interactive telehealth by Cristin Gregorio MD.? Patient is located at [facility].? Provider is located at [email or web address].? Nursing staff assisted with the patient's exam. The visit being done today meets criteria for a telehealth visit and the patient or patient?s parent/guardian is aware the visit is a telehealth visit.
[2025-06-28 05:03] LABS: Chloride* 103 mmol/L (96-114); Sodium* 137 mmol/L (135-149)
[2025-06-28 05:04] LABS: Potassium* 4.0 mmol/L (3.6-5.1)
[2025-06-28 05:06] LABS: Blood Urea Nitrogen* 10 mg/dL (7-30); Creatinine* 0.7 mg/dL (0.5-1.5); Est. Creatinine Clearance* 30.76; Estimated Glomerular Filt Rate 83 ml/min
[2025-06-28 05:07] LABS: Anion Gap 8 mEq/L (7-15); Calcium* 9.5 mg/dL (8.4-10.6); Carbon Dioxide* 26 mmol/L (20-32); Glucose* 100 mg/dL (60-115)
--- NOTE | 2025-06-28 06:57 | PC.NURSE ---
End of shift:? Pt arrived to the floor at 0450. Alert, oriented to self. Baseline dementia. Face symmetrical, hand and foot strength equal. VSS, though hypertensive. 1a walker and gait belt. Pt continent with urge incontinence. Tele reads sinus bradycardia. Pt in bed, appears to be resting call light within reach, alarms on.?
[2025-06-28] MEDS: AMLODIPINE 5 MG TABLET 2.5 MG PO (08:47)
[2025-06-28] MEDS: OMEPRAZOLE 20 MG CAPSULE DR PO (08:47)
[2025-06-28] MEDS: METOPROLOL SUCCINATE (XL) 25 MG TAB PO (08:47)
[2025-06-28] MEDS: SODIUM CHLORIDE 0.9 % (FLUSH) 10 ML SYRINGE 5 ML IVF (08:47)
[2025-06-28] MEDS: APIXABAN 5 MG TABLET PO (08:47)
--- NOTE | 2025-06-28 11:03 | P.DS_ITS ---
DS: Providers Provider Date Seen: 06/28/25 Date of admission: 06/28/25 04:38 Primary care physician: Mando Blount MD Admitting Clinician: Cristin Gregorio MD Consults: PT, OT Attending Physician on discharge: Eladia Gomez MD Date of Discharge: 06/28/25 DS: Diagnosis Discharge Diagnosis (1) TIA (transient ischemic attack): Status: Acute Problem details: - Neurological symptoms resolved during stay - no further workup recommended by Stroke Neurology (per discussion with ER physician 06/28) (2) Hypertension: Status: Acute Problem details: - continued home medications during short stay, avoided hypotension (3) Paroxysmal atrial fibrillation: Status: Acute Problem details: - continued home Metoprolol and Eliquis (4) Dementia: Status: Chronic Problem details: - chronic - 12/19/2024 [place] at 10 out of 30 - lives in Memory Care at [facility] DS: Summary Hospital Course Hospital Course: Luz Marina is a delightful 89-year-old woman with history of stroke and atrial fibrillation who was admitted to the hospital overnight for monitoring after an acute episode of altered mental status and neurologic changes. She lives at an assisted living facility in [place]; during a routine overnight check she was noted to have facial droop with carpal speech and weakness. Stroke code was initiated and she came to the emergency room by ambulance. Head CT in the ER was negative. Symptoms resolved and stroke Neuro was consulted, who did not recommend any further workup given resolution of symptoms and current medication regimen. Patient was kept overnight for monitoring; telemetry reassuring, no needs identified by Physical or Occupational therapy. Patient remained stable and appropriate for discharge back to Memory Care at [facility] on 06/28/25. No changes made to medications, routine follow-up with PCP. Status at Discharge Overall status at discharge: patient is progressing back to baseline Time Spent with Patient Time attestation: Total time spent providing and/or coordinating discharge services: Time spent: Greater than 30 minutes Specific discharge activities: update phone call to son, review of medical records, plan of care Exam Narrative: Exam Narrative: GEN: Awake, oriented to self. Sitting in bedside chair and having breakfast, nontoxic HEENT: No obvious facial droop appreciated, edentulous. EOMIs bilaterally, no scleral icterus CV: RRR, No concerning murmurs R: LCTA bilaterally without concerning wheezing, air movement adequate. No cough while eating Neuro: No facial droop, no resting tremor, feeding self well. Seen ambulating with PT Psych: Cognitive impairment evident, no agitation Const: Vital Signs, click to edit/add: Vital Signs - 24 hr 06/28/25 03:17 06/28/25 03:41 06/28/25 03:45 Temperature 98.0 F Pulse Rate 58 L 61 Pulse Rate [Pulse Oximeter] Pulse Rate [Right Pulse Oximeter] Respiratory Rate 16 21 Blood Pressure Blood Pressure [Le ft Arm] Blood Pressure [Ri ght Upper Arm] Pulse Oximetry 94 93 Oxygen Delivery Me thod 06/28/25 03:52 06/28/25 04:00 06/28/25 04:08 Temperature Pulse Rate 63 59 L Pulse Rate [Pulse Oximeter] Pulse Rate [Right Pulse Oximeter] 64 Respiratory Rate 18 20 19 Blood Pressure 165/86 H Blood Pressure [Le ft Arm] Blood Pressure [Ri ght Upper Arm] 163/100 H Pulse Oximetry 94 94 95 [facility] 06/28/25 04:12 06/28/25 04:13 06/28/25 04:15 Temperature Pulse Rate 62 62 60 Pulse Rate [Pulse Oximeter] Pulse Rate [Right Pulse Oximeter] Respiratory Rate 21 21 15 Blood Pressure 161/77 H Blood Pressure [Le ft Arm] Blood Pressure [Ri ght Upper Arm] Pulse Oximetry 93 93 94 Oxygen Delivery Me thod 06/28/25 04:21 06/28/25 04:30 06/28/25 04:32 Temperature Pulse Rate 61 70 71 Pulse Rate [Pulse Oximeter] Pulse Rate [Right Pulse Oximeter] Respiratory Rate 23 31 H 10 L Blood Pressure 171/82 H 179/99 H Blood Pressure [Le ft Arm] Blood Pressure [Ri ght Upper Arm] Pulse Oximetry 94 95 97 Oxygen Delivery Wi thod 06/28/25 04:50 06/28/25 04:50 06/28/25 05:33 Temperature 97.4 F L Pulse Rate 56 L Pulse Rate [Pulse Oximeter] 62 Pulse Rate [Right Pulse Oximeter] Respiratory Rate 16 16 Blood Pressure Blood Pressure [Le ft Arm] 154/95 H Blood Pressure [Ri ght Upper Arm] Pulse Oximetry 97 97 Oxygen Delivery [facility] Room Air 06/28/25 07:00 06/28/25 07:00 06/28/25 08:30 Temperature 97.6 F Pulse Rate 63 Pulse Rate [Pulse Oximeter] 67 67 Pulse Rate [Right Pulse Oximeter] Respiratory Rate 18 18 Blood Pressure Blood Pressure [Le ft Arm] 151/82 H Blood Pressure [Ri ght Upper Arm] Pulse Oximetry 96 Oxygen Delivery Me thod Room Air DS: Data Data Completed and Pending Labs on day of discharge: Labs from last 24 hours 06/28/25 03:45 WBC 6.46 RBC 4.59 Hgb 14.0 Hct 42.7 MCV 93 MCH 31 MCHC 33 RDW Coeff of Lalo 12.9 Plt Count 137 L Neut % (Auto) 48.9 Lymph % (Auto) 31.3 Nance % (Auto) 12.2 H Eos % (Auto) 7.1 H Baso % (Auto) 0.5 Neut # (Auto) 3.16 Lymph # (Auto) 2.02 Nance # (Auto) 0.80 Eos # (Auto) 0.50 Baso # (Auto) 0.03 Abs Immat Gran (auto) 0.00 Imm/Tot Granulo (auto) 0.0 Sodium 137 Potassium 4.0 Chloride 103 Carbon Dioxide 26 Anion Gap 8 BUN 10 Creatinine 0.7 Estimated Creat Clear 30.76 Estimated GFR 83 Glucose 100 Calcium 9.5 Discharge Plan Discharge Disposition: [facility] Date of Admission: 06/28/25 04:38 Attending Provider on Discharge: Eladia Gomez Primary Care Provider: Mando Blount Condition: Improved Anticipated Discharge Date/Time: 06/28/25 11:01 Discharge Medications: Continued sennosides [senna] 8.6 mg tablet 8.6 mg PO DAILY nystatin 100,000 unit/gram cream 1 applic topical DAILY PRN Ocuvite with Lutein 300 mcg-200 mg-27 mg-2 mg tablet 1 tab PO DAILY carboxymethylcellulose sodium [Refresh Celluvisc] 1 % dropperette,gel 1 drp ophthalmic (eye) Q8H PRN omeprazole 20 mg capsule,delayed release(DR/EC) 20 mg PO DAILY atorvastatin 40 mg Tablet 40 mg PO HS Qty: 30 0RF Eliquis 5 mg Tablet 5 mg PO BID Qty: 60 0RF metoprolol succinate 25 mg capsule,sprinkle,ER 24hr 25 mg PO DAILY Qty: 30 0RF acetaminophen [Acetaminophen Extra Strength] 500 mg tablet 1,000 mg PO BID PRN melatonin 3 mg capsule 3 mg PO HS PRN calcium carbonate [Antacid (calcium carbonate)] 200 mg calcium (500 mg) tablet,chewable 400 mg PO TID PRN (Reason: heartburn) lisinopril 5 mg tablet 5 mg PO DAILY bisacodyl [Dulcolax (bisacodyl)] 10 mg suppository 10 mg VA DAILY PRN alum-mag hydroxide-simeth [Maalox Advanced] 200-200-20 mg/5 mL suspension 30 ml PO QID PRN magnesium hydroxide [Milk of Magnesia] 400 mg/5 mL suspension 30 ml PO Q48H PRN Discharge Orders: Discharge Order (Routine); Ordered 06/28/25 Ordered By: Eladia Gomez Additional Instructions: No changes to home medications or cares. Activity Level: Activity as Tolerated Discharge Diet: Regular Follow Up Appointments: Mando Blount MD [Primary Care Provider, [facility]] Forms: Patient Belongings, [facility] Info Instructions Admit to: Assisted Living Discharge Potential: Poor Length of Stay: >90 days Can use facility standing orders?: Yes Code Status: DNR/DNI Rehab Potential: Poor Oxygen: No Urinary Catheter: No Orders are good >30 days: Yes Signature: Eladia Gomez MD
--- NOTE | 2025-06-28 11:36 | REH.OT ---
Screen completed on pt. BUE AROM WNL. 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 Able to track pen with B eyes to scan horizontally and vertically with smooth movements. Pt is not able to complete convergence/divergence. Pt denies any vision changes or concerns. Pt ambulates with SBA with 2ww. Pt completes toileting with SBA with 2ww. Vision does not appear to be impacting pt's indep with ADLs/IADLs. Pt appears at functional baseline. Recommend return back to memory care.
--- NOTE | 2025-06-28 12:57 | PC.SOCIAL ---
Discharge planning: Secure emailed discharge orders to nurse at [facility] and informed her of need for van supervisor opening and picking today for pt to return to her facility. Called back and confirmed van supervisor opening and picking time at 1:15pm. Called son, Carlos, who is aware and agrees with discharge plans.
--- NOTE | 2025-06-28 13:23 | PC.NURSE ---
Discharge: Patient pleasant and cooperative. Only alert and oriented to self and occasionally place. VSS, afebrile. IV removed with tip intact. Discharged to [facility] via van.
== END 2025-06-28 13:15 ==
LOC: ED 04:25 → MEDSURG 04:39
PROVIDERS: Admitting Provider Internal Medicine; Emergency Provider Family Medicine; PCP Family Medicine; Visit Provider Internal Medicine
DX: G45.9 Transient cerebral ischemic attack, unspecified (principal); I10 Essential (primary) hypertension; I48.0 Paroxysmal atrial fibrillation; F03.90 Unspecified dementia, unspecified severity, without behavioral disturbance, psychotic disturbance, mood disturbance, and anxiety
CPT/HCPCS: 36415; 70450; 80048; 82962; 85025; 87081; 93005; 97161; 99283; 99285; A9270; G0378

== ENCOUNTER 2025-08-09 09:14 | Outpatient (REF) | payer BC, SELFPAY ==
[2025-08-09 11:04] LABS: Appearance Urine Cloudy (Clear)
== END 2025-08-09 09:15 | disposition home or self-care (01) ==
LOC: NPINS 09:14
PROVIDERS: PCP Family Medicine; Visit Provider Nurse Practitioner Gerontology
DX: R82.79 Other abnormal findings on microbiological examination of urine (principal); R82.90 Unspecified abnormal findings in urine
CPT/HCPCS: 81001; 87086

== ENCOUNTER 2025-08-15 14:38 | Outpatient (REF) | payer BC, SELFPAY ==
[2025-08-15 15:32] LABS: Hematocrit* 42.3 % (33.0-51.0); Hemoglobin* 13.7 gm/dL (12.0-16.0); Immature Granulocytes Pct Auto 0.1 %; Mean Corpuscular HGB Conc 32 gm/dL (32-36); Mean Corpuscular Hemoglobin 31 pg (26-34); Mean Corpuscular Volume 96 fL (80-100); RDW Coefficient of Variation % 12.9 % (11.5-15.5); Red Blood Count* 4.43 m/uL (4.00-5.20); White Blood Count* 13.92 K/uL (4.50-11.00)
[2025-08-15 16:41] LABS: Immature Granulocytes Abs Auto 0.00 K/uL (0.00-0.30); Lymphocytes Absolute Auto 0.80 K/uL (0.90-2.90); Slide Review Reflex Yes
[2025-08-15 16:43] LABS: Slide Review Acceptable Review (Acceptable)
[2025-08-15 16:51] LABS: Chloride* 103 mmol/L (96-114); Potassium* 5.1 mmol/L (3.6-5.1); Sodium* 137 mmol/L (135-149)
[2025-08-15 16:54] LABS: Anion Gap 15 mEq/L (7-15); Blood Urea Nitrogen* 37 mg/dL (7-30); Calcium* 9.0 mg/dL (8.4-10.6); Carbon Dioxide* 19 mmol/L (20-32); Creatinine* 0.9 mg/dL (0.5-1.5); Estimated Glomerular Filt Rate 61 ml/min; Glucose* 110 mg/dL (60-115)
== END 2025-08-15 14:39 | disposition home or self-care (01) ==
LOC: NPINS 14:38
PROVIDERS: PCP Family Medicine; Visit Provider Nurse Practitioner Gerontology
DX: R53.83 Other fatigue (principal); R53.1 Weakness
CPT/HCPCS: 80048; 84443; 85025

== ENCOUNTER 2025-08-25 12:14 | Outpatient (CLI) | payer BC, SELFPAY ==
[2025-08-26 13:37] LABS: Appearance Urine Clear (Clear)
== END 2025-08-25 12:15 | disposition home or self-care (01) ==
LOC: NPLBINS 12:16
PROVIDERS: PCP Family Medicine; Visit Provider Nurse Practitioner Gerontology
DX: N39.0 Urinary tract infection, site not specified (principal)
CPT/HCPCS: 81001; 87086

== ENCOUNTER 2025-08-28 18:07 | Outpatient (REF) | payer BC, SELFPAY ==
[2025-08-28 19:20] LABS: Hematocrit* 42.3 % (33.0-51.0); Hemoglobin* 13.9 gm/dL (12.0-16.0); Immature Granulocytes Abs Auto 0.01 K/uL (0.00-0.30); Immature Granulocytes Pct Auto 0.2 %; Lymphocytes Absolute Auto 1.97 K/uL (0.90-2.90); Mean Corpuscular HGB Conc 33 gm/dL (32-36); Mean Corpuscular Hemoglobin 31 pg (26-34); Mean Corpuscular Volume 94 fL (80-100); RDW Coefficient of Variation % 13.0 % (11.5-15.5); Red Blood Count* 4.49 m/uL (4.00-5.20); White Blood Count* 6.19 K/uL (4.50-11.00)
[2025-08-28 19:22] LABS: Slide Review Reflex No
[2025-08-28 19:53] LABS: Free T4 Free Thyroxine* 1.18 ng/dL (0.70-1.85)
[2025-09-02 21:33] LABS: T3 Reverse - LC-MS/MS 16.4 ng/dL (9.0-27.0); T3, Ratio (T3:RT3) 4.1 (4.2-11.0); T3, Total - LC-MS/MS 68 ng/dL (80-200)
== END 2025-08-28 18:08 | disposition home or self-care (01) ==
LOC: NPINS 18:07
PROVIDERS: PCP Family Medicine; Visit Provider Nurse Practitioner Gerontology
DX: R53.83 Other fatigue (principal)
CPT/HCPCS: 84439; 84443; 84480; 84482; 85025